=== PATIENT | female | born 1940 | race Caucasian/White ===

== ENCOUNTER 2016-11-14 16:29 | Inpatient (IN) | payer MEDICARE ==
[~2016-11-14] VITALS: Ht 162.6 cm; Wt 64.1 kg
[2016-11-14] VITALS (12 sets, daily range): BP systolic 157–225; BP diastolic 69–137; PULSE 74–94; RESP 16–20; TEMP 97.4–97.9; O2SAT 95–98
[~2016-11-14 16:29] MED LIST: CALC600T12 PO; FOSA70TA PO; HYDRO2.5%T TOP; INSU100V3 SQ; LISI-357 PO; METO25 PO; ROSU20 PO; ST JTAB PO; ZOFR4TAB3 SL
[2016-11-14] MEDS ORDERED: DEXTROSE 50% IN WATER 50 ML VIAL(D50) ONE ×2 (16:47→18:07)
--- NOTE | 2016-11-14 17:12 | PD ---
HPI Chief Complaint: Diabetic Time Seen by Provider: 16:48 Travel History International Travel<30 days: No Contact w/Intl Traveler<30days: No Traveled to known affect area: No History of Present Illness HPI The patient is a 76-year-old female who presents emergency department for mucus in the posterior aspect of her throat and possible sinusitis. The patient states she had similar symptoms 1 month ago with postnasal drip, phlegm in the posterior aspect of her throat, and facial pain. The patient was seen by her primary physician, Dr. Dr. Drew, who prescribed antibiotics. The patient states her symptoms resolved, however, they are now returning. The patient also has a history of diabetes and takes insulin 21 units in the morning and 6 units at night. The patient took her insulin this morning and subsequently ate biscuits and gravy. However, at lunch she was eating roast beef when she subsequently had an episode of vomiting secondary to mucus in the posterior aspect of her throat was unable to tolerate lunch. Upon arrival the patient was noted be diaphoretic with a blood glucose of 36. 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 She complains of left-sided facial pain with tenderness over the left frontal sinus and left maxillary sinus with postnasal drainage. She also complains of a nose, worse when she eats. She denies any fever or posterior headache. She denies any cough, shortness of breath, or chest pain. PFSH Past Medical History Diabetes: Yes Patient Takes Glucophage: No Diminished Hearing: Yes (DIMINISHED HEARING RIGHT EAR) Immunizations Current: Yes ?: Not Menopausal: No Past Surgical History Eye Surgery: Yes (BOTH FOR CATARACT REMOVAL AND GLAUCOMA) Hysterectomy: Yes Social History Alcohol Use: No Tobacco Use: No Substance Use: No Allergies-Medications (Allergen,Severity, Reaction): Coded Allergies: Morphine (Verified Allergy, Intermediate, VOMITING, 05/07/14) Reported Meds & Prescriptions Reported Meds & Active Scripts Active Reported Calcium (Calcium Carbonate) 600 Mg Tab 1,200 Mg PO DAILY Fosamax (Alendronate Sodium) 70 Mg Tab 70 Mg PO Q7D TAKE 30 MINUTES BEFORE THE MORNING MEAL, ONLY WATER Aspirin Ec Low Strength (Aspirin) 81 Mg Tab 81 Mg PO DAILY Lisinopril 5 mg (Lisinopril) 5 Mg Tab 1 Tab PO DAILY Crestor (Rosuvastatin Calcium) 20 Mg Tab 20 Mg PO DAILY Metoprolol Tartrate 25 mg (Metoprolol Tartrate) 25 Mg Tab 12.5 Tab PO DAILY Humulin N (Insulin Human NPH) Inj 6 Units SQ HS Humulin N (Insulin Human NPH) Inj 21 Units SQ DAILY Review of Systems Except as stated in HPI: all other systems reviewed are Neg General / Constitutional: No: Fever HENT: Positive: Sore Throat, Rhinitis, Other (as noted in the history of present illness) Cardiovascular: No: Chest Pain or Discomfort Respiratory: No: Cough, Shortness of Breath Gastrointestinal: Positive: Vomiting (one episode of vomiting secondary to mucus in the throat) Musculoskeletal: No: Weakness Neurologic: No: Dizziness Physical Exam Narrative GENERAL: Awake, alert, pleasant 76-year-old female who appears her stated age and is in no acute respiratory distress. SKIN: Focused skin assessment warm/dry. HEAD: Atraumatic. Normocephalic. EYES: Pupils equal and round. No scleral icterus. No injection or drainage. ENT: No nasal bleeding or discharge. Cobblestoning of posterior pharynx, no exudate. Tenderness over the left frontal sinus and left maxillary sinus. NECK: Trachea midline. No JVD. CARDIOVASCULAR: Regular rate and rhythm. No murmur appreciated. RESPIRATORY: No accessory muscle use. Clear to auscultation. Breath sounds equal bilaterally. GASTROINTESTINAL: Abdomen soft, non-tender, nondistended. MUSCULOSKELETAL: No obvious deformities. No clubbing. No cyanosis. No edema. NEUROLOGICAL: Awake and alert. No obvious cranial nerve deficits. Motor grossly within normal limits. Normal speech. PSYCHIATRIC: Appropriate mood and affect; insight and judgment normal. Data Data Last Documented VS Vital Signs Date Time Temp Pulse Resp B/P Pulse Ox O2 Delivery O2 Flow Rate FiO2 11/14/16 18:35 84 20 189/99 97 11/14/16 17:04 Room Air 11/14/16 16:43 97.6 Orders Dextrose 50% In Rod (Vial) Inj (D50w (Vi (11/14/16 16:47) Complete Blood Count With Diff (11/14/16 17:02) Comprehensive Metabolic Panel (11/14/16 17:02) Chest, Single Ap (11/14/16 17:02) Blood Glucose (11/14/16 17:02) Blood Glucose (11/14/16 18:02) Ecg Monitoring (11/14/16 17:02) Iv Access Insert/Monitor (11/14/16 17:02) Oximetry (11/14/16 17:02) Sodium Chloride 0.9% Flush (Ns Flush) (11/14/16 17:15) Diet Regular Basic (11/14/16 Dinner) Dextrose 50% In Rod (Syr) Inj (D50w (Syr (11/14/16 17:15) Glucagon Inj (Glucagon Inj) (11/14/16 18:00) Ondansetron Inj (Zofran Inj) (11/14/16 18:00) Dextrose 50% In Rod (Vial) Inj (D50w (Vi (11/14/16 18:07) Dextrose 50% In Rod (Syr) Inj (D50w (Syr (11/14/16 18:15) Dext 5%-Nacl 0.45% 1000 Ml Inj (D5w-1/2 (11/14/16 18:15) Electrocardiogram (11/14/16 ) Admit Order (Ed Use Only) (11/14/16 18:30) Consult Gastroenterology (11/14/16 ) Labs Laboratory Tests Test 11/14/16 11/14/16 17:06 17:40 Sodium Level 141 MEQ/L Potassium Level 3.5 MEQ/L Chloride Level 107 MEQ/L Carbon Dioxide Level 25.2 MEQ/L Anion Gap 9 MEQ/L Blood Urea Nitrogen 30 MG/DL Creatinine 1.50 MG/DL Estimat Glomerular Filtration 34 ML/MIN Rate Random Glucose 34 MG/DL Calcium Level 9.2 MG/DL Total Bilirubin 0.4 MG/DL Aspartate Amino Transf 28 U/L (AST/SGOT) Alanine Aminotransferase 20 U/L (ALT/SGPT) Alkaline Phosphatase 67 U/L Total Protein 7.9 GM/DL Albumin 3.6 GM/DL White Blood Count 7.6 TH/MM3 Red Blood Count 4.17 MIL/MM3 Hemoglobin 12.2 GM/DL Hematocrit 37.2 % Mean Corpuscular Volume 89.3 FL Mean Corpuscular Hemoglobin 29.3 PG Mean Corpuscular Hemoglobin 32.8 % Concent Red Cell Distribution Width 13.1 % Platelet Count 162 TH/MM3 Mean Platelet Volume 9.1 FL Neutrophils (%) (Auto) 71.8 % Lymphocytes (%) (Auto) 13.5 % Monocytes (%) (Auto) 8.1 % Eosinophils (%) (Auto) 3.8 % Basophils (%) (Auto) 2.8 % Neutrophils # (Auto) 5.5 TH/MM3 Lymphocytes # (Auto) 1.0 TH/MM3 Monocytes # (Auto) 0.6 TH/MM3 Eosinophils # (Auto) 0.3 TH/MM3 Basophils # (Auto) 0.2 TH/MM3 CBC Comment DIFF FINAL Differential Comment MDM Medical Decision Making Medical Screen Exam Complete: Yes Emergency Medical Condition: Yes Medical Record Reviewed: Yes Interpretation(s) Last Impressions Chest X-Ray 11/14/161701 Signed Impressions: Service Date/Time: Saturday, November 14, 2016 17:12 - CONCLUSION: 1. COPD with mild bibasilar interstitial prominence. 2. No evidence of consolidating infiltrate. 3. Status post CABG without evidence of acute pulmonary congestion. Scott Gagnon MD Last Impressions Chest X-Ray 11/14/161701 Signed Impressions: Service Date/Time: Monday, November 14, 2016 17:12 - CONCLUSION: 1. COPD with mild bibasilar interstitial prominence. 2. No evidence of consolidating infiltrate. 3. Status post CABG without evidence of acute pulmonary congestion. Scott Gagnon MD EKG reveals normal sinus rhythm with a rate 89. Nonspecific T wave changes. Wavy baseline. Differential Diagnosis Differential diagnoses includes sinusitis, URI, pharyngitis, achalasia, esophageal spasm, bronchitis, pneumonia, Schatzki ring, esophageal fistula, esophageal food bolus Narrative Course IV was established, labs were drawn and sent, and the patient was placed on cardiac telemetry monitoring and continuous pulse oximetry monitoring. The patient's blood glucose was noted to be 36 with diaphoresis, therefore, she was administered one amp of D50. The patient's symptoms did resolve, she was monitored in the emergency department with every hour Accu-Cheks. The patient was ordered a diet. The patient does have tenderness over the left frontal and left maxilla sinus with cobblestoning in posterior oropharynx which is consistent with sinusitis. The patient was ordered a diet, however, every time she ate solid food and will go down and she was subsequently vomited minimally digested food. She denied any anterior chest pain, just feels like there is "mucus in the throat ". She denies any history of esophageal motility disorders or previous EGD. However, patient was witnessed swallowing greater than soft bruits, it would go down, and 2 minutes later she would throw up non- digested food. It appears the patient has an esophageal stricture versus esophageal foreign body. Chest x-ray was unremarkable. Therefore, the patient was then kept nothing by mouth and the on-call anchor operator was called. I discussed the patient with Dr. Adams who requests glucagon 1 mg IV and oral challenge. 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 At 6:10 PM the patient's blood sugar was once again checked, was down to 61. The patient was administered another amp of D50 and placed on D5 1 half normal saline at 84 mL's per hour. The patient then had some more vomiting which would appear to be mostly partial to undigested solid food with chunks. I am unsure if this is from the esophagus and/or stomach, it appears the patient has some type of partial esophageal stricture or closure. After glucagon the patient was able to tolerate water, however, we did not try solids as she was nauseous and had another episode of vomiting. The on-call anchor operator was paged once again in the [facility] were paged for admission. Physician Communication Physician Communication [facility] were paged for admission. I discussed the patient with Dr. Peralta who agrees with admission. Diagnosis Primary Impression: Hypoglycemia Additional Impression: Nausea & vomiting Qualified Code: R11.2 - Nausea and vomiting, intractability of vomiting not specified, unspecified vomiting type Admitting Information Admitting Physician Requests: Admit Condition: Stable Moshe Moreno MD Nov 14, 2016 17:12
[2016-11-14] MEDS ORDERED: DEXTROSE 50% IN WATER 50 ML SYRINGE IV ONE ×2 (17:15→18:15)
[2016-11-14] MEDS ORDERED: SODIUM CHLORIDE 0.9% FLUSH 10 ML FLUSH IVF PRN (17:15)
--- NOTE | 2016-11-14 17:27 | RADRPT ---
EXAM DATE/TIME: 11/14/2016 17:12 [facility] COMPARISON: No previous studies available for comparison. INDICATIONS : Cough. MEDICAL HISTORY : None. SURGICAL HISTORY : CABG. ENCOUNTER: Initial ACUITY: 1 day PAIN SCORE: 0/10 LOCATION: Bilateral chest FINDINGS: Lungs are hyperinflated. There is mild interstitial prominence in the bases. There is no evidence of lung consolidation. Heart is normal size. Post surgical changes from prior open heart surgery are noted. CONCLUSION: 1. COPD with mild bibasilar interstitial prominence. 2. No evidence of consolidating infiltrate. 3. Status post CABG without evidence of acute pulmonary congestion. Scott Gagnon MD on November 14, 2016 at 17:24 Board Certified Radiologist. This report was verified electronically.
[2016-11-14 17:29] LABS: CHLORIDE 107 MEQ/L (98-107); POTASSIUM 3.5 MEQ/L (3.5-5.1); SODIUM (NA) 141 MEQ/L (136-145)
[2016-11-14 17:33] LABS: ANION GAP 9 MEQ/L (5-15); BICARBONATE 25.2 MEQ/L (21.0-32.0)
[2016-11-14 17:49] LABS: AUTOMATED NEUTROPHIL # 5.5 TH/MM3 (1.8-7.7); BASOPHIL # 0.2 TH/MM3 (0-0.2); BASOPHIL % 2.8 % (0.0-2.0); EOSINOPHIL # 0.3 TH/MM3 (0-0.4); EOSINOPHIL % 3.8 % (0.0-4.0); HEMATOCRIT 37.2 % (35.0-46.0); HEMO FLAGS DIFF FINAL; LYMPH % 13.5 % (9.0-44.0); MEAN CELL VOLUME 89.3 FL (80.0-100.0); MEAN CORPUSCULAR HEMOGLOBIN 29.3 PG (27.0-34.0); MEAN CORPUSCULAR HGB CONC 32.8 % (32.0-36.0); MONO % 8.1 % (0.0-8.0); NEUT % 71.8 % (16.0-70.0); PLATELET COUNT 162 TH/MM3 (150-450); RED BLOOD COUNT 4.17 MIL/MM3 (4.00-5.30); RED CELL DISTRIBUTION WIDTH 13.1 % (11.6-17.2); WHITE BLOOD COUNT 7.6 TH/MM3 (4.0-11.0)
[2016-11-14 17:57] LABS: ALKALINE PHOSPHATASE 67 U/L (45-117); ALT (GPT) 20 U/L (10-53); AST (GOT) 28 U/L (15-37); BLOOD UREA NITROGEN 30 MG/DL (7-18); GLOMERULAR FILTRATION RATE 34 ML/MIN (>89); TOTAL BILIRUBIN ADULT 0.4 MG/DL (0.2-1.0)
[2016-11-14] MEDS ORDERED: GLUCAGON 1 MG/ML VIAL IV PUSH ONE (18:00)
[2016-11-14] MEDS ORDERED: ONDANSETRON HCL 4 MG/2 ML VIAL IV PUSH ONE (18:00)
[2016-11-14] MEDS ORDERED: DEXT 5%-NACL 0.45% 1000 ML INJ 1,000 ML IV SCH ×2 (18:15→19:30)
[2016-11-14] MEDS ORDERED: NALOXONE HCL 0.4 MG/ML AMP IV PRN (19:30)
[2016-11-14] MEDS ORDERED: PROCHLORPERAZINE 25 MG SUPP RECTAL PRN (19:30)
[2016-11-14] MEDS ORDERED: hydrALAZINE HCL 20 MG/ML VIAL IV PRN (19:30)
[2016-11-14] MEDS ORDERED: ENALAPRILAT 1.25 MG/ML VIAL IV PRN (19:30)
[2016-11-14] MEDS ORDERED: ONDANSETRON HCL 4 MG/2 ML VIAL IVP PRN (19:30)
--- NOTE | 2016-11-14 20:02 | MH ---
cc: ISRAEL PERALTA DATE OF ADMISSION 11/14/2016 DATE OF [address] Israel Peralta. PRIMARY CARE PHYSICIAN Dr. Drew REASON FOR ADMISSION Vomiting and passing out because of hypoglycemia. HISTORY OF THE PRESENT ILLNESS The patient is a very pleasant 76-year-old female with significant past medical history of hypertension and diabetes who came to the ER after passing out episode secondary to hypoglycemia. As per patient about a month ago she had similar symptoms of having vomiting after eating after an half an hour to an hour eating and she was diagnosed at that time with a sinusitis and antibiotic was given by her primary care doctor. The symptoms resolved and she was doing very well. Until this morning she ate and after that she had some vomiting. This morning she could not tolerate food but she ate a sandwich. The sandwich came up not after a long period and she was having some ____ sweats as well and she passed out. Her wants to give but she could not and he called 911. She was brought by the [facility]. As per the patient her sugar was very low and she was given dextrose. She usually takes insulin 21 units in the morning and 6 units at night. In the emergency room her sugar was low and she was given dextrose 2 ampules. She was started on dextrose half saline. Her sugar is now 200 plus. She still feels some queasiness in her stomach. But she has no vomiting at present. She has no headache or dizziness. There is no runny nose, stuffy nose. There is no cough. She had some cough yesterday. She had some left-sided facial ache and she thinks she has left sinus infection. She has postnasal drainage. She feels like she is going to bring up all of her food from this afternoon. She can tolerate clears very well. With clears there is no problem as per patient. The ER physician discussed with Dr. Kelly, dockworker, who wants her to be in the main hospital. Because he most likely will do a barium swallow or if needed endoscopy. PAST MEDICAL HISTORY 1. Diabetes. 2. Hypertension. 3. History of CAD status post CABG. 4. History of glaucoma. MEDICATIONS Reviewed please EMR. ALLERGIES THE PATIENT HAS ALLERGY TO MORPHINE. REVIEW OF SYSTEMS As described above in the history of present illness, negative for 10 systems. SOCIAL HISTORY The patient does not smoke, drink or do any drugs. She lives with her . FAMILY HISTORY Noncontributory. PHYSICAL EXAMINATION GENERAL: The patient is alert, oriented x3, well-built, well-nourished, lying on bed without any apparent distress. VITAL SIGNS: The patient is afebrile. Pulse is 84, respiratory rate 20, blood pressure 189/99, pulse ox of 97% on room air. HEENT: Head is atraumatic, normocephalic. Eyes, negative conjunctival icterus. Mouth unremarkable. There is no sinus tenderness on the right. There is a questionable sinus tenderness on the left side. Throat within normal limits. Central uvula. There is no swelling noted in the throat or back of the throat. NECK: Supple. No increased JVD. Trachea midline. CHEST: Clear to auscultation. No wheezing. No stridor noted. CARDIOVASCULAR: S1-S2 audible. . ABDOMEN: Soft. Nontender. No organomegaly. Positive bowel sounds. MUSCULOSKELETAL: Extremities no cyanosis or pedal edema appreciated. CENTRAL NERVOUS SYSTEM: Alert and oriented. Normal facial features. Moving all her extremities. LABORATORY DATA Investigations WBC, hemoglobin, hematocrit, platelet count within normal limits. BUN 30, creatinine 1.50. GFR 34. Random glucose was 34. LFTs within normal limits. PT, INR, APTT within normal limits. IMAGING Chest x-ray was done which shows COPD with mild bibasilar interstitial prominence. No evidence of consolidation or consolidating infiltrate. Status post CABG without evidence of acute pulmonary congestion. ASSESSMENT 1. Passing out felt secondary to the severe hypoglycemia. 2. Severe hyperglycemia secondary to nausea and vomiting. Intra-abdominal to tolerate food but took her medications this morning. 3. Diabetes. 4. Hypertension, uncontrolled. 5. History of CAD status post CABG. 6. Vomiting, unable to swallow solids. Regurgitating / vomiting with solid food. PLAN Admit to the floor. Gastroenterology consultation. IV dextrose with half normal saline to maintain normal sugar. The patient is status post D50 ampules IV. We will keep her on a PPI. Also monitor blood pressure on a p.r.n. basis. Blood pressure medication on p.r.n. basis. Antihypertensives. The patient has stage of history of CKD, we will monitor. SCDs for DVT prophylaxis. Accu-Cheks. Condition discussed with the patient in detail. Discussed with RN. Further recommendation to follow as per patient progresses. Condition is guarded. My partner will follow this patient from tomorrow. Jawed MD TERRI Peralta/PHILIPPE /7:12 PM /7:25 PM
[2016-11-14] MEDS: PANTOPRAZOLE SODIUM 40 MG VIAL IV PUSH SCH (20:13)
[2016-11-14] MEDS ORDERED: CARV3.12 PO (22:23)
[2016-11-14] MEDS ORDERED: LISI-519 PO (22:25)
[2016-11-14] MEDS ORDERED: ASPI81CH CHEW (22:25)
[2016-11-14] MEDS ORDERED: ROSU1TAB8 PO (22:25)
[2016-11-14] MEDS ORDERED: CALC0.25 PO (22:26)
[2016-11-14] MEDS ORDERED: INSU100V3 SQ ×2 (22:27→22:28)
[2016-11-15] VITALS (12 sets, daily range): BP systolic 76–198; BP diastolic 39–101; PULSE 76–93; RESP 11–29; TEMP 97–98; O2SAT 95–97
[2016-11-15 06:24] LABS: CHLORIDE 104 MEQ/L (98-107); POTASSIUM 4.2 MEQ/L (3.5-5.1); SODIUM (NA) 138 MEQ/L (136-145)
[2016-11-15 06:27] LABS: ANION GAP 8 MEQ/L (5-15); BICARBONATE 25.9 MEQ/L (21.0-32.0)
[2016-11-15 06:34] LABS: ALKALINE PHOSPHATASE 61 U/L (45-117); ALT (GPT) 16 U/L (10-53); AST (GOT) 24 U/L (15-37); BLOOD UREA NITROGEN 24 MG/DL (7-18); GLOMERULAR FILTRATION RATE 37 ML/MIN (>89); TOTAL BILIRUBIN ADULT 0.5 MG/DL (0.2-1.0)
[2016-11-15] MEDS ORDERED: PROPOFOL 200 MG/20 ML AMP IV ONE (08:32)
--- NOTE | 2016-11-15 08:33 | HHI.PR ---
Vitals/Results Intake & Output 11/14/16 11/14/16 11/15/16 15:00 23:00 07:00 Intake Total 600 ml Output Total 725 ml Balance -125 ml Intake Oral 0 ml IV Total 600 ml Output Urine Total 725 ml # Voids 2 # Bowel Movements 0 Vital Signs Vital Signs Date Time Temp Pulse Resp B/P Pulse Ox O2 Delivery O2 Flow Rate FiO2 11/15/16 08:00 97.0 82 16 154/62 96 11/15/16 08:00 97.0 82 18 154/62 11/15/16 04:00 97.2 80 20 145/65 96 11/15/16 00:40 185/78 11/15/16 00:15 93 11/14/16 22:45 97.4 94 20 206/92 98 11/14/16 21:31 97.9 89 16 157/73 96 Room Air 11/14/16 21:00 88 18 170/82 98 Room Air 11/14/16 19:30 80 18 166/70 95 Room Air 11/14/16 19:05 98 Room Air 11/14/16 19:05 97.8 86 20 204/83 98 Room Air 11/14/16 18:35 84 20 189/99 97 11/14/16 18:28 89 18 207/75 96 11/14/16 18:10 82 18 206/137 96 11/14/16 17:52 74 20 202/79 11/14/16 17:11 74 18 180/69 96 11/14/16 17:04 98 Room Air 11/14/16 16:54 98 Room Air 11/14/16 16:43 97.6 80 20 225/115 98 CBC/BMP: 11/14/16 1740 11/15/16 0545 Lab Results Laboratory Tests Test 11/14/16 11/14/16 11/15/16 17:06 17:40 05:45 Sodium Level 141 MEQ/L 138 MEQ/L Potassium Level 3.5 MEQ/L 4.2 MEQ/L Chloride Level 107 MEQ/L 104 MEQ/L Carbon Dioxide Level 25.2 MEQ/L 25.9 MEQ/L Anion Gap 9 MEQ/L 8 MEQ/L Blood Urea Nitrogen 30 MG/DL 24 MG/DL Creatinine 1.50 MG/DL 1.40 MG/DL Estimat Glomerular Filtration 34 ML/MIN 37 ML/MIN Rate Random Glucose 34 MG/DL 216 MG/DL Calcium Level 9.2 MG/DL 8.4 MG/DL Total Bilirubin 0.4 MG/DL 0.5 MG/DL Aspartate Amino Transf 28 U/L 24 U/L (AST/SGOT) Alanine Aminotransferase 20 U/L 16 U/L (ALT/SGPT) Alkaline Phosphatase 67 U/L 61 U/L Total Protein 7.9 GM/DL 6.8 GM/DL Albumin 3.6 GM/DL 3.1 GM/DL White Blood Count 7.6 TH/MM3 Red Blood Count 4.17 MIL/MM3 Hemoglobin 12.2 GM/DL Hematocrit 37.2 % Mean Corpuscular Volume 89.3 FL Mean Corpuscular Hemoglobin 29.3 PG Mean Corpuscular Hemoglobin 32.8 % Concent Red Cell Distribution Width 13.1 % Platelet Count 162 TH/MM3 Mean Platelet Volume 9.1 FL Neutrophils (%) (Auto) 71.8 % Lymphocytes (%) (Auto) 13.5 % Monocytes (%) (Auto) 8.1 % Eosinophils (%) (Auto) 3.8 % Basophils (%) (Auto) 2.8 % Neutrophils # (Auto) 5.5 TH/MM3 Lymphocytes # (Auto) 1.0 TH/MM3 Monocytes # (Auto) 0.6 TH/MM3 Eosinophils # (Auto) 0.3 TH/MM3 Basophils # (Auto) 0.2 TH/MM3 CBC Comment DIFF FINAL Differential Comment Assessment/Plan Assessment/Plan ASSESSMENT 1. Passing out felt secondary to the severe hypoglycemia. 2. Severe hyperglycemia secondary to nausea and vomiting. Intra-abdominal to tolerate food but took her medications this morning. 3. Diabetes. 4. Hypertension, uncontrolled. 5. History of CAD status post CABG. 6. Vomiting, unable to swallow solids. Regurgitating / vomiting with solid food. PLAN Admit to the floor. Gastroenterology consultation. IV dextrose with half normal saline to maintain normal sugar. The patient is status post D50 ampules IV. We will keep her on a PPI. Also monitor blood pressure on a p.r.n. basis. Blood pressure medication on p.r.n. basis. Antihypertensives. The patient has stage of history of CKD, we will monitor. SCDs for DVT prophylaxis. Accu-Cheks. Condition discussed with the patient in detail. Discussed with RN. Further recommendation to follow as per patient progresses. Condition is guarded. My partner will follow this patient from tomorrow. Hank Jerez MD Nov 15, 2016 08:33
[2016-11-15 08:35] LABS: AUTOMATED NEUTROPHIL # 7.3 TH/MM3 (1.8-7.7); BASOPHIL # 0.1 TH/MM3 (0-0.2); BASOPHIL % 0.7 % (0.0-2.0); EOSINOPHIL # 0.2 TH/MM3 (0-0.4); EOSINOPHIL % 2.1 % (0.0-4.0); LYMPH % 16.4 % (9.0-44.0); LYMPHOCYTE # 1.7 TH/MM3 (1.0-4.8); MEAN CELL VOLUME 87.8 FL (80.0-100.0); MEAN CORPUSCULAR HEMOGLOBIN 28.7 PG (27.0-34.0); MEAN CORPUSCULAR HGB CONC 32.7 % (32.0-36.0); MONO % 9.2 % (0.0-8.0); NEUT % 71.6 % (16.0-70.0); RED BLOOD COUNT 3.98 MIL/MM3 (4.00-5.30); RED CELL DISTRIBUTION WIDTH 12.3 % (11.6-17.2); WHITE BLOOD COUNT 10.2 TH/MM3 (4.0-11.0)
[2016-11-15 08:38] LABS: HEMO FLAGS AUTO DIFF
[2016-11-15 08:39] LABS: PLATELET COUNT 227 TH/MM3 (150-450)
--- NOTE | 2016-11-15 08:40 | GIPROC ---
[facility] [address] [place] [address], [id number] EGD PROCEDURE REPORT EXAM DATE: 11/15/2016 PATIENT NAME: Yoana Pina MR #: [id number] BIRTHDATE: 1940 ATTENDING: Cheryl Garcia MD ORDER #: [id number] FIRE EQUIPMENT INSPECTOR HELPER: Abraham Dominguez and Philly Ordoñez STATUS: inpatient INDICATIONS: The patient is a 76 yr old female here for an EGD due to dysphagia and unable to swallow her secretions PROCEDURE PERFORMED: EGD w/ biopsy EGD w/ dilation of esophagus via guidewire MEDICATIONS: None and Per Anesthesia. TOPICAL ANESTHETIC: none CONSENT: The patient understands the risks and benefits of the procedure and understands that these risks include, but are not limited to: sedation, allergic reaction, infection, perforation and/or bleeding. Alternative means of evaluation and treatment include, among others: physical exam, x-rays, and/or surgical intervention. The patient elects to proceed with this endoscopic procedure. medical equipment was checked for proper function. Hand hygiene and appropriate measures for infection prevention was taken. After the risks, benefits and alternatives of the procedure were thoroughly explained, Informed consent was verified, confirmed and timeout was successfully executed by the treatment team. The patient was anesthetized with topical anesthesia and the EC-[id number] (Pedi C) endoscope was introduced through the mouth and advanced to the second portion of the duodenum. Retroflexed views revealed no abnormalities The gastroscope was then slowly withdrawn and removed. Irregular Z line Bx from EG junction. The endoscopy was otherwise normal. Imperic dilation of of the esophagus size 17 mm. ADVERSE EVENTS: There were no complications. IMPRESSIONS: 1. Irregular Z line Bx from EG junction 2. Normal endoscopy otherwise 3. Imperic dilation of of the esophagus size 17 mm 4. Retroflexed views revealed no abnormalities RECOMMENDATIONS: 1. Await biopsy results. Biopsy results will not be ready for 7-10 days. If you don't hear from us in two weeks, call our office for biopsy results. 2. Avoid NSAIDS 3. May feed patient PATIENT CONDITION: stable DISPOSITION: Inpatient REPEAT EXAM: Return as needed for EGD Cheryl Garcia MD eSigned: Cheryl Garcia MD 11/15/2016 8:40 AM cc:
[2016-11-15 09:27] LABS: SCAN/DIFF AUTO DIFF CONFIRMED
--- NOTE | 2016-11-15 11:32 | EKG ---
Date Performed: 11/14/2016 Time Performed: 18:13:46 PTAGE: 76 years EKG: Normal Sinus rhythm based on artifact Poor R-wave progression, cannot exclude old anteroseptal myocardial infarction Non specifc ST changes No obvious change from the prior tracing. PREVIOUS TRACING 05/07/14 DOCTOR: Jose E Alcantar Interpretating Date/Time 11/15/2016 11:30:39
--- NOTE | 2016-11-15 14:05 | MB ---
cc: ISAIAS NEWBERRY M.D. DATE OF CONSULTATION 11/15/2016 DATE OF [address] Kelley REASON FOR REFERRAL Possible dysphagia HISTORY OF PRESENT ILLNESS This is a pleasant 76-year-old lady who has significant history of diabetes and hypertension who came to the emergency room because of episodes of hypoglycemia. The patient was seen here. She had some vomiting after eating and she also has questionable postnasal drip and sinusitis. She stated that she had that about a month ago and her similar symptoms is that she did feel able to swallow her saliva for awhile and she is worried that there is something caught in her esophagus. She denied any other problem. She occasionally does not tolerate food well where she feels that it does not go down easily. ALLERGIES MORPHINE MEDICATIONS Reviewed in the chart. REVIEW OF SYSTEMS All 12-point negative except HPI. SOCIAL HISTORY No tobacco, drug or alcohol. PAST MEDICAL HISTORY Significant for: 1. Hypertension 2. Glaucoma 3. Coronary artery disease with CABG. 4. Diabetes FAMILY HISTORY Noncontributory PHYSICAL EXAMINATION Alert, oriented in no acute distress. A little bit nervous. VITAL SIGNS: Stable. HEENT: Pupils are round and reactive to light. NECK: Supple. CHEST: Clear to auscultation and percussion. CARDIAC: Regular rate and rhythm. No murmur or gallop. ABDOMEN: Soft and nondistended. Positive bowel sounds. No hepatosplenomegaly. EXTREMITIES: No edema, clubbing or cyanosis. NEUROLOGIC: Neurologically intact, alert and oriented. PSYCHOLOGIC: Psychologically appropriate. LABORATORY DATA White count 10.2, hemoglobin 11.4, platelet 227, BUN 24, creatinine 1.40, GFR 77. Liver function tests normal. CHEST X-RAY Mild basilar interstitial prominence, otherwise negative. ASSESSMENT/PLAN The patient is a 76-year-old lady with diabetes and questionable dysphagia. I recommend doing upper endoscopy to rule out esophageal stricture or malignancy. The patient otherwise seems to be doing okay. It also could be a component of gastroparesis. If the endoscopy is negative and her symptoms persist, a gastric emptying study may be indicated, but this can be done as an outpatient. The patient understood the plan and will proceed with upper endoscopy today since she is n.p.o. MD SORAYA Rivera /11:35 AM /1:14 PM
[2016-11-15] MEDS ORDERED: INSULIN ASPART 1,000 UNITS/10 ML VIAL SQ ONE (17:30)
[2016-11-15] MEDS ORDERED: GLUCAGON 1 MG/ML VIAL OTHER PRN (17:30)
[2016-11-15] MEDS ORDERED: DEXTROSE 50% IN WATER 50 ML VIAL(D50) IV PUSH PRN ×2 (17:30→19:45)
[2016-11-15] MEDS ORDERED: INSULIN REGULAR 100 UNITS/100 ML NS ALGORITHM 1 IV PRN ×2 (19:45)
[2016-11-15] MEDS ORDERED: MISC INFORMATION OTHER ONE (19:45)
[2016-11-15] MEDS: PANTOPRAZOLE SODIUM 40 MG VIAL IV PUSH SCH (19:52)
[2016-11-15] MEDS ORDERED: MEDIUM DOSE INSULIN NOVOLOG SUPPLEMENTAL SCALE SQ SCH (21:00)
[2016-11-16] VITALS (14 sets, daily range): BP systolic 90–147; BP diastolic 40–83; PULSE 72–88; RESP 12–22; TEMP 97.7–98.6; O2SAT 96–98
[2016-11-16] MEDS ORDERED: CHLORHEXIDINE GLUCONATE 2 % 1 PACK (2 CLOTHS)(extra cloths) TOPICAL PRN (00:15)
--- NOTE | 2016-11-16 02:59 | HHI.PR ---
Subjective History of Present Illness Received call from RN, insulin drip on hold x 2 hours secondary to glucose in the 80s. Ordered d/c insulin drip accucheck ACHS with sliding scale Vitals/Results Intake & Output 11/15/16 11/15/16 11/16/16 15:00 23:00 07:00 Intake Total 50 ml 31 ml Output Total 900 ml Balance 50 ml -869 ml Intake Oral 30 ml IV Total 1 ml Other 50 ml Output Urine Total 900 ml # Voids 1 # Bowel Movements 0 Vital Signs Vital Signs Date Time Temp Pulse Resp B/P Pulse Ox O2 Delivery O2 Flow Rate FiO2 11/16/16 02:01 76 14 108/53 98 11/16/16 01:01 80 18 90/44 98 11/16/16 01:00 72 11/16/16 00:01 97.7 82 15 91/40 98 11/15/16 23:42 82 21 103/47 96 11/15/16 23:03 76 17 88/43 95 11/15/16 23:01 76 11 76/39 95 11/15/16 22:01 88 21 163/73 97 11/15/16 21:01 86 29 139/80 97 11/15/16 20:30 97.6 89 24 198/101 97 11/15/16 16:00 98.0 91 18 141/69 95 11/15/16 12:00 97.7 86 18 142/75 95 11/15/16 09:05 98.8 82 16 140/47 98 11/15/16 08:50 81 16 116/50 98 11/15/16 08:40 99.0 74 14 91/50 100 11/15/16 08:00 97.0 82 16 154/62 96 11/15/16 08:00 97.0 82 18 154/62 11/15/16 04:00 97.2 80 20 145/65 96 CBC/BMP: 11/15/16 0755 11/15/16 2345 Lab Results Laboratory Tests Test 11/15/16 11/15/16 11/15/16 05:45 07:55 17:35 Sodium Level 138 MEQ/L Potassium Level 4.2 MEQ/L Chloride Level 104 MEQ/L Carbon Dioxide Level 25.9 MEQ/L Anion Gap 8 MEQ/L Blood Urea Nitrogen 24 MG/DL Creatinine 1.40 MG/DL Estimat Glomerular Filtration 37 ML/MIN Rate Random Glucose 216 MG/DL 765 MG/DL Calcium Level 8.4 MG/DL Total Bilirubin 0.5 MG/DL Aspartate Amino Transf 24 U/L (AST/SGOT) Alanine Aminotransferase 16 U/L (ALT/SGPT) Alkaline Phosphatase 61 U/L Total Protein 6.8 GM/DL Albumin 3.1 GM/DL White Blood Count 10.2 TH/MM3 Red Blood Count 3.98 MIL/MM3 Hemoglobin 11.4 GM/DL Hematocrit 35.0 % Mean Corpuscular Volume 87.8 FL Mean Corpuscular Hemoglobin 28.7 PG Mean Corpuscular Hemoglobin 32.7 % Concent Red Cell Distribution Width 12.3 % Platelet Count 227 TH/MM3 Mean Platelet Volume 8.3 FL Neutrophils (%) (Auto) 71.6 % Lymphocytes (%) (Auto) 16.4 % Monocytes (%) (Auto) 9.2 % Eosinophils (%) (Auto) 2.1 % Basophils (%) (Auto) 0.7 % Neutrophils # (Auto) 7.3 TH/MM3 Lymphocytes # (Auto) 1.7 TH/MM3 Monocytes # (Auto) 0.9 TH/MM3 Eosinophils # (Auto) 0.2 TH/MM3 Basophils # (Auto) 0.1 TH/MM3 CBC Comment AUTO DIFF Differential Comment AUTO DIFF CONFIRMED Assessment/Plan Assessment/Plan ASSESSMENT 1. Passing out felt secondary to the severe hypoglycemia. 2. Severe hyperglycemia secondary to nausea and vomiting. Intra-abdominal to tolerate food but took her medications this morning. 3. Diabetes. 4. Hypertension, uncontrolled. 5. History of CAD status post CABG. 6. Vomiting, unable to swallow solids. Regurgitating / vomiting with solid food. PLAN Admit to the floor. Gastroenterology consultation. IV dextrose with half normal saline to maintain normal sugar. The patient is status post D50 ampules IV. We will keep her on a PPI. Also monitor blood pressure on a p.r.n. basis. Blood pressure medication on p.r.n. basis. Antihypertensives. The patient has stage of history of CKD, we will monitor. SCDs for DVT prophylaxis. Accu-Cheks. Condition discussed with the patient in detail. Discussed with RN. Further recommendation to follow as per patient progresses. Condition is guarded. My partner will follow this patient from tomorrow. Gee Becerril Nov 16, 2016 02:59
[2016-11-16] MEDS ORDERED: DEXTROSE 50% IN WATER 50 ML VIAL(D50) IV PRN (03:00)
[2016-11-16] MEDS ORDERED: GLUCAGON 1 MG/ML VIAL OTHER PRN (03:00)
[2016-11-16] MEDS ORDERED: CHLORHEXIDINE GLUCONATE 2 % 1 PACK (2 CLOTHS)(taper/protocol) TOPICAL SCH (04:00)
[2016-11-16 04:45] LABS: HEMATOCRIT 32.4 % (35.0-46.0); MEAN CELL VOLUME 87.3 FL (80.0-100.0); MEAN CORPUSCULAR HEMOGLOBIN 28.1 PG (27.0-34.0); MEAN CORPUSCULAR HGB CONC 32.2 % (32.0-36.0); RED BLOOD COUNT 3.71 MIL/MM3 (4.00-5.30); RED CELL DISTRIBUTION WIDTH 12.3 % (11.6-17.2)
[2016-11-16 04:50] LABS: WHITE BLOOD COUNT 5.8 TH/MM3 (4.0-11.0)
[2016-11-16 04:51] LABS: EOSINOPHIL # 0.3 TH/MM3 (0-0.4); LYMPHOCYTE # 1.2 TH/MM3 (1.0-4.8)
[2016-11-16 04:52] LABS: BASOPHIL % 0.9 % (0.0-2.0); EOSINOPHIL % 4.8 % (0.0-4.0); LYMPH % 23.1 % (9.0-44.0); NEUT % 55.1 % (16.0-70.0)
[2016-11-16 04:53] LABS: HEMO FLAGS DIFF FINAL
[2016-11-16 04:54] LABS: PLATELET COUNT 200 TH/MM3 (150-450)
[2016-11-16 05:04] LABS: CHLORIDE 103 MEQ/L (98-107); POTASSIUM 3.9 MEQ/L (3.5-5.1); SODIUM (NA) 137 MEQ/L (136-145)
[2016-11-16 05:08] LABS: ANION GAP 7 MEQ/L (5-15); BICARBONATE 26.9 MEQ/L (21.0-32.0)
[2016-11-16 05:15] LABS: ALKALINE PHOSPHATASE 59 U/L (45-117); ALT (GPT) 15 U/L (10-53); AST (GOT) 22 U/L (15-37); BLOOD UREA NITROGEN 25 MG/DL (7-18); GLOMERULAR FILTRATION RATE 37 ML/MIN (>89); TOTAL BILIRUBIN ADULT 0.4 MG/DL (0.2-1.0)
[2016-11-16] MEDS: INSULIN ASPART SUPPLEMENTAL SCALE SQ SCH ×2 (07:00→10:05)
--- NOTE | 2016-11-16 09:19 | HHI.GIFU ---
Subjective Remarks feels well today (had elevated glucose and transferred to ICU) no dysphagia tolerating food well. Objective Vitals I&O Vital Signs Date Time Temp Pulse Resp B/P Pulse Ox O2 Delivery O2 Flow Rate FiO2 11/16/16 06:01 80 15 104/57 96 11/16/16 05:01 76 17 111/59 11/16/16 05:00 77 11/16/16 04:01 98.6 74 12 98/41 97 11/16/16 03:01 74 16 97/48 11/16/16 03:00 79 11/16/16 02:01 76 14 108/53 98 11/16/16 01:01 80 18 90/44 98 11/16/16 01:00 72 11/16/16 00:01 97.7 82 15 91/40 98 11/15/16 23:42 82 21 103/47 96 11/15/16 23:03 76 17 88/43 95 11/15/16 23:01 76 11 76/39 95 11/15/16 22:01 88 21 163/73 97 11/15/16 21:01 86 29 139/80 97 11/15/16 20:30 97.6 89 24 198/101 97 11/15/16 16:00 98.0 91 18 141/69 95 11/15/16 12:00 97.7 86 18 142/75 95 I/O 11/15/16 11/15/16 11/15/16 11/16/16 11/16/16 11/16/16 06:59 14:59 22:59 06:59 14:59 22:59 Intake Total 600 ml 50 ml 31 ml 46 ml Output Total 725 ml 900 ml Balance -125 ml 50 ml -869 ml 46 ml Intake Oral 0 ml 30 ml 30 ml IV Total 600 ml 1 ml 16 ml Other 50 ml Output Urine Total 725 ml 900 ml # Voids 2 1 2 # Bowel Movements 0 0 0 Laboratory Laboratory Tests Test 11/15/16 11/16/16 17:35 04:15 Random Glucose 765 111 White Blood Count 5.8 Red Blood Count 3.71 Hemoglobin 10.4 Hematocrit 32.4 Mean Corpuscular Volume 87.3 Mean Corpuscular Hemoglobin 28.1 Mean Corpuscular Hemoglobin 32.2 Concent Red Cell Distribution Width 12.3 Platelet Count 200 Mean Platelet Volume 7.3 Neutrophils (%) (Auto) 55.1 Lymphocytes (%) (Auto) 23.1 Monocytes (%) (Auto) 16.0 Eosinophils (%) (Auto) 4.8 Basophils (%) (Auto) 0.9 Neutrophils # (Auto) 3.0 Lymphocytes # (Auto) 1.2 Monocytes # (Auto) 0.8 Eosinophils # (Auto) 0.3 Basophils # (Auto) 0.0 CBC Comment DIFF FINAL Differential Comment Sodium Level 137 Potassium Level 3.9 Chloride Level 103 Carbon Dioxide Level 26.9 Anion Gap 7 Blood Urea Nitrogen 25 Creatinine 1.40 Estimat Glomerular Filtration 37 Rate Calcium Level 8.6 Total Bilirubin 0.4 Aspartate Amino Transf 22 (AST/SGOT) Alanine Aminotransferase 15 (ALT/SGPT) Alkaline Phosphatase 59 Total Protein 6.4 Albumin 3.0 Physical Exam HEENT: Pupils round and reactive to light; normocephalic; atraumatic; no jaundice. Throat is clear. NECK: Neck is supple, no JVD, no lymphadenopathy. CHEST: Chest is clear to auscultation and percussion. CARDIAC: Regular rate and rhythm with no murmur gallop or rubs. ABDOMEN: Soft, nondistended, nontender; no hepatosplenomegaly; bowel sounds are present in all four quadrants. EXTREMITIES: No clubbing, cyanosis, or edema. SKIN: Normal; no rash; no jaundice. PRIMARY CARE PEDIATRICIAN: No focal deficits; alert and oriented times three. Assessment and Plan Plan doing well, no abdominal pain, tolerating diet, no dysphagia, we will sign off, FU as needed. Cheryl Garcia MD Nov 16, 2016 09:19
--- NOTE | 2016-11-16 10:20 | HHI.PR ---
Subjective History of Present Illness Patient feel better wants to go home today ok to discharge home today per GI. Review of Systems Constitutional Constitutional: Fatigue, Weakness Vitals/Results Intake & Output 11/15/16 11/15/16 11/16/16 15:00 23:00 07:00 Intake Total 50 ml 31 ml 46 ml Output Total 900 ml Balance 50 ml -869 ml 46 ml Intake Oral 30 ml 30 ml IV Total 1 ml 16 ml Other 50 ml Output Urine Total 900 ml # Voids 1 2 # Bowel Movements 0 0 Vital Signs Vital Signs Date Time Temp Pulse Resp B/P Pulse Ox O2 Delivery O2 Flow Rate FiO2 11/16/16 09:06 86 11/16/16 09:06 86 22 147/83 11/16/16 08:01 82 21 119/52 11/16/16 08:01 82 11/16/16 07:00 98.2 84 17 133/63 11/16/16 07:00 84 11/16/16 06:01 80 15 104/57 96 11/16/16 05:01 76 17 111/59 11/16/16 05:00 77 11/16/16 04:01 98.6 74 12 98/41 97 11/16/16 03:01 74 16 97/48 11/16/16 03:00 79 11/16/16 02:01 76 14 108/53 98 11/16/16 01:01 80 18 90/44 98 11/16/16 01:00 72 11/16/16 00:01 97.7 82 15 91/40 98 11/15/16 23:42 82 21 103/47 96 11/15/16 23:03 76 17 88/43 95 11/15/16 23:01 76 11 76/39 95 11/15/16 22:01 88 21 163/73 97 11/15/16 21:01 86 29 139/80 97 11/15/16 20:30 97.6 89 24 198/101 97 11/15/16 16:00 98.0 91 18 141/69 95 11/15/16 12:00 97.7 86 18 142/75 95 CBC/BMP: 11/16/16 0415 11/16/16 0415 Lab Results Laboratory Tests Test 11/15/16 11/16/16 17:35 04:15 Random Glucose 765 MG/DL 111 MG/DL White Blood Count 5.8 TH/MM3 Red Blood Count 3.71 MIL/MM3 Hemoglobin 10.4 GM/DL Hematocrit 32.4 % Mean Corpuscular Volume 87.3 FL Mean Corpuscular Hemoglobin 28.1 PG Mean Corpuscular Hemoglobin 32.2 % Concent Red Cell Distribution Width 12.3 % Platelet Count 200 TH/MM3 Mean Platelet Volume 7.3 FL Neutrophils (%) (Auto) 55.1 % Lymphocytes (%) (Auto) 23.1 % Monocytes (%) (Auto) 16.0 % Eosinophils (%) (Auto) 4.8 % Basophils (%) (Auto) 0.9 % Neutrophils # (Auto) 3.0 TH/MM3 Lymphocytes # (Auto) 1.2 TH/MM3 Monocytes # (Auto) 0.8 TH/MM3 Eosinophils # (Auto) 0.3 TH/MM3 Basophils # (Auto) 0.0 TH/MM3 CBC Comment DIFF FINAL Differential Comment Sodium Level 137 MEQ/L Potassium Level 3.9 MEQ/L Chloride Level 103 MEQ/L Carbon Dioxide Level 26.9 MEQ/L Anion Gap 7 MEQ/L Blood Urea Nitrogen 25 MG/DL Creatinine 1.40 MG/DL Estimat Glomerular Filtration 37 ML/MIN Rate Calcium Level 8.6 MG/DL Total Bilirubin 0.4 MG/DL Aspartate Amino Transf 22 U/L (AST/SGOT) Alanine Aminotransferase 15 U/L (ALT/SGPT) Alkaline Phosphatase 59 U/L Total Protein 6.4 GM/DL Albumin 3.0 GM/DL Physical Exam General General Appearance: Well Developed, Well Nourished, No Acute Distress, Comfortable Eyes Eye Exam: Sclera White, Extraocular Movement Intact Throat Throat Exam: Oral Mucosa Makena & Moist, Oral Pharynx Normal Neck Neck Exam: Neck Supple, Trachea Midline Pulmonary Resp Exam: Clear Bilaterally, Breath Sounds Equal, No Distress Cardiology CV Exam: Regular, Normal Sinus Rhythm Gastrointestinal/Abdomen GI Exam: Soft, Non-Tender, Bowel Sounds Present Musculoskeletal MS Exam: Normal Tone Integumentary Skin Exam: Clear, Warm, Dry Neurologic Neuro Exam: Alert, Awake, Oriented, Moving All Extremities, No Focal Deficits PUD Prophylasis PUD Prophylaxis: Protonix Assessment/Plan Assessment/Plan ASSESSMENT 1. Passing out felt secondary to the severe hypoglycemia. 2. Severe hyperglycemia secondary to nausea and vomiting. Intra-abdominal to tolerate food but took her medications this morning. 3. Diabetes. 4. Hypertension, uncontrolled. 5. History of CAD status post CABG. 6. Vomiting, unable to swallow solids. Regurgitating / vomiting with solid food. PLAN Gastroenterology input noted s/p upper endoscopy.. shows Irregular Z line Bx from EG junction Normal endoscopy otherwise Imperic dilation of of the esophagus size 17 mm, Retroflexed views revealed no abnormalities Await biopsy results. Biopsy results will not be ready for 7-10 days. Hypoglycemia ... The patient is status post D50 ampules IV. on a PPI. Also monitor blood pressure on a p.r.n. basis. Hypertension.. on Antihypertensives. The patient has stage 3 of CKD SCDs for DVT prophylaxis. Accu-Cheks. Condition discussed with the patient in detail. Discussed with RN. Further recommendation to follow as per patient progresses. ok to discharge patient home today condition at discharge good. Activity as tolerated. Diet cardiac and ADA 1800 Calories diet. Medicine see discharge medicine list. Discussed Condition with: Patient Hank Jerez MD Nov 16, 2016 10:20
== END 2016-11-16 12:45 | disposition home or self-care (01) | DRG 639 ==
LOC: PHED 16:29 → PHEDA 18:31 → PH3A 22:36 → PHICU 11-15 20:00
PROVIDERS: ADMIT Family Medicine; ATTEND Family Medicine
PROC: 0DB48ZX Excision of Esophagogastric Junction, Via Natural or Artificial Opening Endoscopic, Diagnostic (ICD-10-PCS; 2016-11-15)
PROC: 0D758ZZ Dilation of Esophagus, Via Natural or Artificial Opening Endoscopic (ICD-10-PCS; principal; 2016-11-15 08:28)
DX: E11.649 Type 2 diabetes mellitus with hypoglycemia without coma (principal); E11.65 Type 2 diabetes mellitus with hyperglycemia; Z79.4 Long term (current) use of insulin; R13.10 Dysphagia, unspecified; K22.8 Other specified diseases of esophagus; R11.2 Nausea with vomiting, unspecified; I12.9 Hypertensive chronic kidney disease with stage 1 through stage 4 chronic kidney disease, or unspecified chronic kidney disease; N18.9 Chronic kidney disease, unspecified; I25.10 Atherosclerotic heart disease of native coronary artery without angina pectoris; Z95.1 Presence of aortocoronary bypass graft; R09.82 Postnasal drip; H91.91 Unspecified hearing loss, right ear
CPT/HCPCS: 71010; 80053; 82947; 82948; 85025; 87640; 87641; 88305; 93005; 96374; 96375; C1769; C9113; J0360; J1610; J1815; J1817; J2405

== ENCOUNTER 2017-01-11 00:54 | Observation (INO) | payer MEDICARE ==
[~2017-01-11] VITALS: Ht 162.6 cm; Wt 65.2 kg
[2017-01-11] VITALS (10 sets, daily range): BP systolic 115–192; BP diastolic 57–83; PULSE 70–92; RESP 16–24; TEMP 97.7–98.7; O2SAT 93–99
[~2017-01-11 00:54] MED LIST changes: +ASPI81CH CHEW; +CALC0.25 PO; -CALC600T12 PO; +CARV3.12 PO; -FOSA70TA PO; -HYDRO2.5%T TOP; -LISI-357 PO; +LISI-519 PO; -METO25 PO; +ROSU1TAB8 PO; -ROSU20 PO; -ST JTAB PO; -ZOFR4TAB3 SL
[2017-01-11] MEDS ORDERED: IOHEXOL 350 MG/ML 10 ML VIAL (for RAD DIAG) IVCONTRAST ONE (00:55)
[2017-01-11] MEDS ORDERED: ONDANSETRON HCL 4 MG/2 ML VIAL ONE (01:22)
[2017-01-11] MEDS ORDERED: COUM1TAB PO (01:41)
[2017-01-11] MEDS ORDERED: HYDR-3516 PO (01:41)
[2017-01-11] MEDS ORDERED: RANI1TAB5 PO (01:41)
[2017-01-11 01:47] LABS: AUTOMATED NEUTROPHIL # 19.7 TH/MM3 (1.8-7.7); BASOPHIL % 0.2 % (0.0-2.0); EOSINOPHIL # 0.1 TH/MM3 (0-0.4); EOSINOPHIL % 0.6 % (0.0-4.0); HEMATOCRIT 34.6 % (35.0-46.0); LYMPHOCYTE # 0.9 TH/MM3 (1.0-4.8); MEAN CELL VOLUME 87.2 FL (80.0-100.0); MEAN CORPUSCULAR HEMOGLOBIN 28.4 PG (27.0-34.0); MEAN CORPUSCULAR HGB CONC 32.6 % (32.0-36.0); MONO % 4.5 % (0.0-8.0); NEUT % 90.7 % (16.0-70.0); PLATELET COUNT 299 TH/MM3 (150-450); RED BLOOD COUNT 3.97 MIL/MM3 (4.00-5.30); RED CELL DISTRIBUTION WIDTH 14.9 % (11.6-17.2); WHITE BLOOD COUNT 21.7 TH/MM3 (4.0-11.0)
[2017-01-11 01:48] LABS: HEMO FLAGS DIFF FINAL
[2017-01-11 01:53] LABS: BICARBONATE 30.6 MEQ/L (21.0-32.0)
[2017-01-11 01:54] LABS: APTT (PATIENT) 29.4 SEC (24.3-30.1); INTERNATIONAL NORMALIZED RATIO 1.4 RATIO; PROTHROMBIN TIME - PATIENT 16.1 SEC (9.8-11.6)
[2017-01-11] MEDS ORDERED: METOCLOPRAMIDE HCL 10 MG/2 ML VIAL IVS ONE (02:00)
[2017-01-11] MEDS ORDERED: ONDANSETRON HCL 4 MG/2 ML VIAL IV ONE (02:00)
[2017-01-11] MEDS: SODIUM CHLOR 0.9% 1000 ML INJ 1,000 ML IV SCH ×2 (02:02→02:49)
--- NOTE | 2017-01-11 02:02 | PD ---
HPI Chief Complaint: GI Complaint Time Seen by Provider: 01:45 Travel History International Travel<30 days: No Contact w/Intl Traveler<30days: No Traveled to known affect area: No History of Present Illness HPI The patient is a 76-year-old female that was nauseated all day yesterday and then 5 PM yesterday started vomiting. She was constipated and took some MiraLAX as well as prune juice. This resulted in a large bowel movement just as the ambulance arrived to pick her to take her to the hospital. She denies any abdominal pain initially but does have some discomfort in the bilateral lower quadrants. She has had a hysterectomy and still has her appendix and gallbladder however. The patient takes Coumadin, apparently for her coronary artery bypass graft that she received in 2012. She is an insulin-dependent diabetic. She has not taken her Coumadin yesterday, only her insulin. She also has stage III renal insufficiency. Her primary care physician is Dr. Drew. [facility] Past Medical History Heart Rhythm Problems: No Cancer: No Cardiovascular Problems: Yes High Cholesterol: Yes Chest Pain: No Congestive Heart Failure: No Diabetes: Yes Patient Takes Glucophage: No Diminished Hearing: Yes (DIMINISHED HEARING RIGHT EAR) Endocrine: Yes Genitourinary: No Hypertension: Yes Immune Disorder: No Musculoskeletal: No Neurologic: No Psychiatric: No Reproductive: No Respiratory: No Immunizations Current: Yes Thyroid Disease: No Tetanus Vaccination: Unknown Influenza Vaccination: No ?: Not Menopausal: No Past Surgical History Cardiac Surgery: Yes (cabg 2012) Ear Surgery: No 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 Coumadin (Warfarin) 1 Mg Tab 1 Mg PO DAILY Humulin N Inj (Insulin Human NPH) 1,000 Unit/10 Ml Vial 6 Units SQ HS Humulin N Inj (Insulin Human NPH) 1,000 Unit/10 Ml Vial 21 Units SQ AC BREAKFAST Calcitriol 0.25 Mcg Cap 0.25 Mcg PO DAILY Lisinopril 5 Mg Tab 5 Mg PO DAILY Rosuvastatin (Rosuvastatin Calcium) 20 Mg Tab 20 Mg PO DAILY Aspirin 81 Mg Chew 81 Mg CHEW DAILY Carvedilol 3.125 Mg Tab 3.125 Mg PO BID Review of Systems Except as stated in HPI: all other systems reviewed are Neg Physical Exam Narrative GENERAL: The patient appears moderately dehydrated, alert, oriented 3 in moderate apparent distress with her abdominal discomfort. Her vital signs show blood pressure 192/78 with respirations of 22 but otherwise unremarkable. SKIN: Focused skin assessment warm/dry. HEAD: Atraumatic. Normocephalic. EYES: Pupils equal and round. No scleral icterus. No injection or drainage. ENT: No nasal bleeding or discharge. Mucous membranes pink and moist. NECK: Trachea midline. No JVD. CARDIOVASCULAR: Regular rate and rhythm. No murmur appreciated. RESPIRATORY: No accessory muscle use. Clear to auscultation. Breath sounds equal bilaterally. GASTROINTESTINAL: Abdomen soft, with tenderness to direct palpation in the bilateral lower quadrants, nondistended. Hepatic and splenic margins not palpable. No guarding or rebound is present. MUSCULOSKELETAL: No obvious deformities. No clubbing. No cyanosis. No edema. NEUROLOGICAL: Awake and alert. No obvious cranial nerve deficits. Motor grossly within normal limits. Normal speech. PSYCHIATRIC: Appropriate mood and affect; insight and judgment normal. Data Data Last Documented VS Vital Signs Date Time Temp Pulse Resp B/P (MAP) Pulse Ox O2 Delivery O2 Flow Rate FiO2 01/11/17 01:11 98.3 84 22 192/78 (116) 95 Orders Orders Ondansetron Inj (Zofran Inj) (01/11/17 01:22) Complete Blood Count With Diff (01/11/17 01:32) Basic Metabolic Panel (Bmp) (01/11/17 01:32) Coag Profile (01/11/17 01:32) Ondansetron Inj (Zofran Inj) (01/11/17 02:00) Metoclopramide Inj (Reglan Inj) (01/11/17 02:00) Sodium Chlor 0.9% 1000 Ml Inj (Ns 1000 M (01/11/17 02:00) Ct Abd/Pel W Iv Contrast(Rout) (01/11/17 02:05) Oral Contrast - Adult (01/11/17 02:12) Diatrizoate Liq ( Gastroview Liq) (01/11/17 02:30) Lipase (01/11/17 01:35) Lactic Acid Sepsis Protocol (01/11/17 02:36) Blood Culture (01/11/17 02:36) Hepatic Functional Panel (01/11/17 01:35) Urinalysis - C+S If Indicated (01/11/17 03:22) Urine Culture (01/11/17 03:26) Iohexol 350 Inj (Omnipaque 350 Inj) (01/11/17 00:55) Prochlorperazine Inj (Compazine Inj) (01/11/17 04:00) Admit Order (Ed Use Only) (01/11/17 03:56) Labs Laboratory Tests Test 01/11/17 01:35 01/11/17 02:55 01/11/17 03:26 White Blood Count 21.7 TH/MM3 Red Blood Count 3.97 MIL/MM3 Hemoglobin 11.3 GM/DL Hematocrit 34.6 % Mean Corpuscular Volume 87.2 FL Mean Corpuscular Hemoglobin 28.4 PG Mean Corpuscular Hemoglobin Concent 32.6 % Red Cell Distribution Width 14.9 % Platelet Count 299 TH/MM3 Mean Platelet Volume 8.2 FL Neutrophils (%) (Auto) 90.7 % Lymphocytes (%) (Auto) 4.0 % Monocytes (%) (Auto) 4.5 % Eosinophils (%) (Auto) 0.6 % Basophils (%) (Auto) 0.2 % Neutrophils # (Auto) 19.7 TH/MM3 Lymphocytes # (Auto) 0.9 TH/MM3 Monocytes # (Auto) 1.0 TH/MM3 Eosinophils # (Auto) 0.1 TH/MM3 Basophils # (Auto) 0.0 TH/MM3 CBC Comment DIFF FINAL Differential Comment Prothrombin Time 16.1 SEC Prothromb Time International Ratio 1.4 RATIO Activated Partial Thromboplast Time 29.4 SEC Blood Urea Nitrogen 21 MG/DL Creatinine 1.10 MG/DL Random Glucose 292 MG/DL Total Protein 7.2 GM/DL Albumin 2.7 GM/DL Calcium Level 9.0 MG/DL Alkaline Phosphatase 141 U/L Aspartate Amino Transf (AST/SGOT) 26 U/L Alanine Aminotransferase (ALT/SGPT) 16 U/L Total Bilirubin 0.7 MG/DL Direct Bilirubin 0.2 MG/DL Sodium Level 133 MEQ/L Potassium Level 4.0 MEQ/L Chloride Level 96 MEQ/L Carbon Dioxide Level 30.6 MEQ/L Anion Gap 6 MEQ/L Estimat Glomerular Filtration Rate 48 ML/MIN Indirect Bilirubin 0.5 MG/DL Lipase 66 U/L Lactic Acid Level 1.3 mmol/L Urine Color YELLOW Urine Turbidity SLIGHT Urine pH 7.0 Urine Specific [place] 1.017 Urine Protein 30 mg/dL Urine Glucose (UA) 1000 OR GREATER mg/dL Urine Ketones TRACE mg/dL Urine Occult Blood LARGE Urine Nitrite NEG Urine Bilirubin NEG Urine Leukocyte Esterase TRACE Urine RBC 15-19 /hpf Urine WBC 6-8 /hpf Urine Squamous Epithelial Cells 6-8 /hpf Urine Bacteria MOD /hpf Microscopic Urinalysis Comment CULTURE INDICATED MDM Medical Decision Making Medical Screen Exam Complete: Yes Emergency Medical Condition: Yes Medical Record Reviewed: Yes Interpretation(s) The urine shows slight turbidity, 1000 or greater glucose, trace ketones, large occult blood with trace leukocyte esterase and 15-19 red cells and 6-8 white cells and moderate bacteria and culture is indicated. The CBC shows a white count of 21,700 with a hemoglobin 11.3 and hematocrit of 34.6. The neutrophils are 91%. The complete metabolic profile shows a glucose of 292, GFR of 48, creatinine 1.1 with sodium of 133 and alkaline phosphatase of 141 and albumen 2.7 is otherwise normal. The lipase is normal and the lactic acid is normal. The ProTime is 16.1 and the INR is 1.4. The CT abdomen/pelvis with contrast shows small bilateral pleural effusions with associated passive atelectasis, 7 mm nonobstructive right renal stone, no acute bowel obstruction, suspected high- grade stenosis versus short segment occlusion involving the left iliac artery. Differential Diagnosis Colitis, small bowel obstruction, gastritis, pancreatitis, dehydration, electrolyte disorder, anemia, renal insufficiency Narrative Course It is now 0354 and the patient still has slight nausea. She has already been given 8 mg of Zofran IV, 10 mg of Reglan IV and is getting 10 mg of Compazine IV. Sepsis Criteria SIRS Criteria (2 or more): RR > 20 or PaCO2 < 32, WBC > 96545, < 4000 or > 10 % bands Diagnosis Primary Impression: Nausea & vomiting Additional Impressions: Dehydration, moderate Pyelonephritis Adarsh Bhat MD Jan 11, 2017 02:02
[2017-01-11] MEDS ORDERED: DIATRIZOATE MEGLUM/DIATRIZOATE SOD 9 ML CUP PO ONE (02:30)
[2017-01-11 02:53] LABS: INDIRECT BILIRUBIN 0.5 MG/DL (0.0-0.8); TOTAL BILIRUBIN ADULT 0.7 MG/DL (0.2-1.0)
[2017-01-11 03:31] LABS: BLOOD, URINE LARGE (NEG); GLUCOSE,URINE 1000 OR GREATER mg/dL (NEG); KETONE, URINE TRACE mg/dL (NEG); NITRITE,URINE NEG (NEG)
[2017-01-11 03:37] LABS: URINE COLOR YELLOW (YELLW/STRAW)
[2017-01-11 03:38] LABS: BACTERIA, URINE MOD /hpf; COMMENT (UR) CULTURE INDICATED; CULTURE IF INDICATED CULTURE INDICATED; RBC, URINE 15-19 /hpf (0-3)
--- NOTE | 2017-01-11 03:58 | RADRPT ---
EXAM DATE/TIME: 01/11/2017 03:24 [place] COMPARISON: No previous studies available for comparison. INDICATIONS : Nausea and vomiting for 1 day. Unable to keep anything down. IV CONTRAST: 92 cc Omnipaque 350 (iohexol) IV ORAL CONTRAST: Partial prescribed oral contrast ingested. RADIATION DOSE: 9.39 CTDIvol (mGy) MEDICAL HISTORY : Diabetes mellitus type 2. Cardiovascular disease Hypertension. SURGICAL HISTORY : Hysterectomy. Hip sagar ENCOUNTER: Initial ACUITY: 1 day PAIN SCALE: 6/10 LOCATION: abdomen TECHNIQUE: Volumetric scanning of the abdomen and pelvis was performed. Using automated exposure control and ad justment of the mA and/or kV according to patient size, radiation dose was kept as low as reasonably achievable to obtain optimal diagnostic quality images. DICOM format image data is available electro nically for review and comparison. FINDINGS: LOWER LUNGS: Small bilateral pleural effusions with associated passive atelectasis. Small hiatal hernia. LIVER: Homogeneous density without lesion. There is no dilation of the biliary tree. No calcified gallston es. SPLEEN: Normal size without lesion. PANCREAS: Within normal limits. KIDNEYS: Normal in size and shape. There is no mass or hydronephrosis. A 7 mm stone is seen involving the charimsa al pelvis on the right. ADRENAL GLANDS: Within normal limits. VASCULAR: Heavily calcified atherosclerotic plaque involving the aorta and inflow vessels. Either high grade st enosis or possible short segment occlusion involving the left inflow. BOWEL/MESENTERY: The stomach, small bowel, and colon demonstrate no acute abnormality. There is no free intraperitone al air or fluid. ABDOMINAL WALL: Within normal limits. RETROPERITONEUM: There is no lymphadenopathy. BLADDER: No wall thickening or mass. REPRODUCTIVE: Within normal limits. INGUINAL: There is no lymphadenopathy or hernia. MUSCULOSKELETAL: Beam hardening artifact from a right hip intramedullary sagar. CONCLUSION: 1. Small bilateral pleural effusions with associated passive atelectasis. 2. 7 mm nonobstructing right renal stone. 3. No acute abnormality. 4. Suspected high grade stenosis versus short segment occlusion involving the left inflow. Clinical e valuation for any signs of left lower extremity or buttock claudication suggested. Jonathan Abel Jr., MD on January 11, 2017 at 3:53 Board Certified Radiologist. This report was verified electronically.
[2017-01-11] MEDS ORDERED: PROCHLORPERAZINE INJ 10 MG/2 ML VIAL IV PUSH ONE (04:00)
[2017-01-11] MEDS ORDERED: NALOXONE HCL 0.4 MG/ML AMP IV PUSH PRN (05:30)
[2017-01-11] MEDS ORDERED: SODIUM CHLORIDE 0.9% FLUSH 10 ML FLUSH IV FLUSH PRN (05:30)
[2017-01-11] MEDS: SODIUM CHLORIDE 0.9% FLUSH 10 ML FLUSH IV FLUSH SCH ×2 (08:11→21:05)
[2017-01-11] MEDS ORDERED: GLUCAGON 1 MG/ML VIAL IM PRN (11:15)
[2017-01-11] MEDS ORDERED: DEXTROSE 50% IN WATER 50 ML VIAL(D50) IV PUSH PRN (11:15)
[2017-01-11] MEDS ORDERED: GLUCAGON 1 MG/ML VIAL OTHER PRN (11:15)
--- NOTE | 2017-01-11 11:27 | HHI.HP ---
[facility] James Drew MD Admission Diagnosis intractable nausea & vomiting, pyelonephritis Diagnoses: Chief Complaint: Nausea and vomiting Travel History International Travel<30 Days: No Contact w/Intl Traveler <30 Da: No Traveled to Known Affected Are: No History of Present Illness Patient is a very pleasant 76-year-old female with of nausea and vomiting and of acute onset yesterday evening prior to arrival in the emergency room. She noted that from 6:00 to 11:00 she had increased nausea and vomiting which was not amenable to any treatments or biofeedback. She came to the emergency room and was given some Zofran. She says that she has been quite constipated and saw her primary doctor who recommended MiraLAX. That did not work and she became more nauseated. She took prune juice and then had nausea and vomiting. Since she's been here in the emergency room she is moved her bowels twice and has felt much better. She in fact says she had some abdominal distention which is resolved. She associates these complaints with her home narcotics which were given post surgery. she did have a repair of her right femoral fracture with sagar. She notes that her constipation abdominal troubles started after that. She is not having any fevers or chills. She has not had any dysuria or hematuria or frequency. The patient says that she has never been prone to but urinary tract infections. Her urinalysis is abnormal here. Of note she admits anemia perioperatively requiring 4 units of packed red blood cells. She has chronic kidney disease. She has been nonweightbearing on the right leg since her discharge from the hospital in. With the local orthopedist. Patient's been recommended for observation due to the symptoms and is still finding of a urinalysis which is abnormal and associated leukocytosis. Review of Systems Constitutional: DENIES: Diaphoretic episodes, Fatigue, Fever, Weight gain, Weight loss, Chills, Dizziness, Change in appetite, Night Sweats Endocrine: DENIES: Abnorml menstrual pattern, Heat/cold intolerance, Polydipsia , Polyuria, Polyphagia Eyes: DENIES: Blurred vision, Diplopia, Eye inflammation, Eye pain, Vision loss , Photosensitivity, Double Vision Gastrointestinal: COMPLAINS OF: Abdominal pain, Nausea, Vomiting Genitourinary: DENIES: Abnormal vaginal bleeding, Dysmenorrhea, Dyspareunia, Sexual dysfunction, Urinary frequency, Urinary incontinence, Urgency, Hematuria , Dysuria, Nocturia, Vaginal discharge Musculoskeletal: COMPLAINS OF: Joint pain (post fracture), DENIES: Muscle aches , Stiffness, Joint Swelling, Back pain, Neck pain Integumentary: DENIES: Abnormal pigmentation, Pruritus, Rash, Nail changes, Breast masses, Breast skin changes, Nipple discharge Hematologic/lymphatic: DENIES: Bruising, Lymphadenopathy Immunologic/allergic: DENIES: Eczema, Urticaria Neurologic: COMPLAINS OF: Abnormal gait (uses a walker), DENIES: Headache, Localized weakness, Paresthesias, Seizures, Speech Problems, Tremor, Poor Balance Psychiatric: DENIES: Anxiety, Confusion, Mood changes, Depression, Hallucinations, Agitation, Suicidal Ideation, Homicidal Ideation, Delusions Except as stated in HPI: all other systems reviewed are Neg Past Family Social History Past Medical History Diabetes Coronary artery disease Past Surgical History Cardiac bypass Recent femoral sagar placement for fracture Hysterectomy Reported Medications Reviewed in the EMR, recent narcotics for pain management Allergies: Coded Allergies: morphine (Unverified Allergy, Intermediate, VOMITING, 01/11/17) Active Ordered Medications Reviewed in the EMR Family History Patient does not recall Social History , no tobacco or alcohol dependency, recent travel to [place] last month Physical Exam Vital Signs Vital Signs Date Time Temp Pulse Resp B/P (MAP) Pulse Ox O2 Delivery O2 Flow Rate FiO2 01/11/17 08:05 98.0 76 20 132/74 (93) 97 01/11/17 06:00 88 01/11/17 05:30 97.7 89 16 146/70 (95) 93 01/11/17 04:44 90 18 169/76 (107) 97 Room Air 01/11/17 01:11 98.3 84 22 192/78 (116) 95 Physical Exam GENERAL: This is a well-nourished, well-developed patient, in no apparent distress. SKIN: No rashes, ecchymoses or lesions. Cool and dry. HEAD: Atraumatic. Normocephalic. No temporal or scalp tenderness. EYES: Pupils equal round and reactive. Extraocular motions intact. No scleral icterus. No injection or drainage. ENT: Nose without bleeding, purulent drainage or septal hematoma. Throat without erythema, tonsillar hypertrophy or exudate. Uvula midline. Airway patent. NECK: Trachea midline. No JVD or lymphadenopathy. Supple, nontender, no meningeal signs. CARDIOVASCULAR: Regular rate and rhythm without murmurs, gallops, or rubs. RESPIRATORY: Clear to auscultation. Breath sounds equal bilaterally. No wheezes , rales, or rhonchi. GASTROINTESTINAL: Abdomen soft, non-tender, nondistended. No hepato-splenomegaly , or palpable masses. No guarding. MUSCULOSKELETAL: Extremities without clubbing, cyanosis, or edema. No joint tenderness, effusion, or edema noted. No calf tenderness. Negative Homans sign bilaterally. NEUROLOGICAL: Awake and alert. Cranial nerves II through XII intact. Motor and sensory grossly within normal limits. Five out of 5 muscle strength in all muscle groups. Normal speech. Laboratory Laboratory Tests Test 01/11/17 01:35 01/11/17 02:55 01/11/17 03:26 White Blood Count 21.7 Red Blood Count 3.97 Hemoglobin 11.3 Hematocrit 34.6 Mean Corpuscular Volume 87.2 Mean Corpuscular Hemoglobin 28.4 Mean Corpuscular Hemoglobin Concent 32.6 Red Cell Distribution Width 14.9 Platelet Count 299 Mean Platelet Volume 8.2 Neutrophils (%) (Auto) 90.7 Lymphocytes (%) (Auto) 4.0 Monocytes (%) (Auto) 4.5 Eosinophils (%) (Auto) 0.6 Basophils (%) (Auto) 0.2 Neutrophils # (Auto) 19.7 Lymphocytes # (Auto) 0.9 Monocytes # (Auto) 1.0 Eosinophils # (Auto) 0.1 Basophils # (Auto) 0.0 CBC Comment DIFF FINAL Differential Comment Prothrombin Time 16.1 Prothromb Time International Ratio 1.4 Activated Partial Thromboplast Time 29.4 Blood Urea Nitrogen 21 Creatinine 1.10 Random Glucose 292 Total Protein 7.2 Albumin 2.7 Calcium Level 9.0 Alkaline Phosphatase 141 Aspartate Amino Transf (AST/SGOT) 26 Alanine Aminotransferase (ALT/SGPT) 16 Total Bilirubin 0.7 Direct Bilirubin 0.2 Sodium Level 133 Potassium Level 4.0 Chloride Level 96 Carbon Dioxide Level 30.6 Anion Gap 6 Estimat Glomerular Filtration Rate 48 Indirect Bilirubin 0.5 Lipase 66 Lactic Acid Level 1.3 Urine Color YELLOW Urine Turbidity SLIGHT Urine pH 7.0 Urine Specific [place] 1.017 Urine Protein 30 Urine Glucose (UA) 1000 OR GREATER Urine Ketones TRACE Urine Occult Blood LARGE Urine Nitrite NEG Urine Bilirubin NEG Urine Leukocyte Esterase TRACE Urine RBC 15-19 Urine WBC 6-8 Urine Squamous Epithelial Cells 6-8 Urine Bacteria MOD Microscopic Urinalysis Comment CULTURE INDICATED Date/Time Source Procedure Growth Status 01/11/17 03:05 Blood Peripheral Aerobic Blood Culture Pending Received 01/11/17 03:05 Blood Peripheral Anaerobic Blood Culture Pending Received 01/11/17 03:26 Urine Clean Catch Urine Culture Pending Received Result Diagram: 01/11/17 0135 01/11/17 0135 Imaging Last Impressions Abdomen/Pelvis CT 01/11/17 0205 Signed Impressions: Service Date/Time: Wednesday, January 11, 2017 03:24 - CONCLUSION: 1. Small bilateral pleural effusions with associated passive atelectasis. 2. 7 mm nonobstructing right renal stone. 3. No acute abnormality. 4. Suspected high grade stenosis versus short segment occlusion involving the left inflow. Clinical evaluation for any signs of left lower extremity or buttock claudication suggested. MD Radha Abebe Jr. VTE Risk Assessment Caprini VTE Risk Assessment: Mod/High Risk (score >= 2) Caprini Risk Assessment Model Point Value = 1 Point Value = 2 Point Value = 3 Point Value = 5 Age 41-60 Minor surgery BMI > 25 kg/m2 Swollen legs Varicose veins or History of unexplained or recurrent spontaneous Oral contraceptives or hormone replacement Sepsis (< 1 month) Serious lung disease, including pneumonia (< 1 month) Abnormal pulmonary function Acute myocardial infarction Congestive heart failure (< 1 month) History of inflammatory bowel disease Medical patient at bed rest Age 61-74 Arthroscopic surgery Major open surgery (> 45 min) Laparoscopic surgery (> 45 min) Malignancy Confined to bed (> 72 hours) Immobilizing plaster cast Central venous access Age >= 75 History of VTE Family history of VTE Factor V Leiden Prothrombin [id number] Lupus anticoagulant Anticardiolipin antibodies Elevated serum homocysteine Heparin-induced thrombocytopenia Other congenital or acquired thrombophilia Stroke (< 1 month) Elective arthroplasty Hip, pelvis, or leg fracture Acute spinal cord injury (< 1 month) Prophylaxis Regimen Total Risk Factor Score Risk Level Prophylaxis Regimen 0-1 Low Early ambulation 2 Moderate Order ONE of the following: *Sequential Compression Device (SCD) *Heparin 5000 units SQ BID 3-4 Higher Order ONE of the following medications: *Heparin 5000 units SQ TID *Enoxaparin/Lovenox 40 mg SQ daily (WT < 150 kg, CrCl > 30 mL/min) *Enoxaparin/Lovenox 30 mg SQ daily (WT < 150 kg, CrCl > 10-29 mL/min) *Enoxaparin/Lovenox 30 mg SQ BID (WT < 150 kg, CrCl > 30 mL/min) AND/OR *Sequential Compression Device (SCD) 5 or more Highest Order ONE of the following medications: *Heparin 5000 units SQ TID (Preferred with Epidurals) *Enoxaparin/Lovenox 40 mg SQ daily (WT < 150 kg, CrCl > 30 mL/min) *Enoxaparin/Lovenox 30 mg SQ daily (WT < 150 kg, CrCl > 10-29 mL/min) *Enoxaparin/Lovenox 30 mg SQ BID (WT < 150 kg, CrCl > 30 mL/min) AND *Sequential Compression Device (SCD) Assessment and Plan Problem List: (1) Constipation ICD Code: K59.00 - Constipation, unspecified Plan: Probably due to narcotics and poor mobility Continue bowel prep Check C. difficile due to recent hospitalization, most likely this is diarrhea from attempt to correct constipation with MiraLAX and prune juice Follow leukocytosis (2) Abnormal urinalysis ICD Code: R82.90 - Unspecified abnormal findings in urine Plan: Without symptoms of urinary tract infection, will follow cultures Empiric antibiotics and follow leukocytosis (3) CKD stage 3 secondary to diabetes ICD Code: E11.22 - Type 2 diabetes mellitus with diabetic chronic kidney disease; N18.3 - Chronic kidney disease, stage 3 (moderate) Plan: Stable, continue calcitriol and avoid further nephrotoxic injury (4) DM2 (diabetes mellitus, type 2) ICD Code: E11.9 - Type 2 diabetes mellitus without complications Plan: Resume home insulin, diabetic diet and sliding scale with insulin and Accu-Cheks (5) Nausea & vomiting ICD Code: R11.2 - Nausea with vomiting, unspecified Status: Acute Plan: Likely due to constipation, continue bowel regimen Zofran as needed (6) Femur fracture ICD Code: S72.90XA - Unspecified fracture of unspecified femur, initial encounter for closed fracture Plan: Surgery 12/27 (in [place]) with nonweightbearing status on the right lower extremity and assisted medical insurance coder patient had been on narcotics and had nausea and constipation associated with her perioperative course Assessment and Plan Continue warfarin, INR 1.4 Code Status Full code Discussed Condition With Patient In overall improved, C. difficile negative, and leukocytosis improved likely discharge in Neha Barton MD Jan 11, 2017 11:27
[2017-01-11] MEDS ORDERED: ACETAMINOPHEN/CODEINE 300 MG/30 MG TAB PO PRN (11:30)
[2017-01-11] MEDS ORDERED: ONDANSETRON HCL 4 MG/2 ML VIAL IV PUSH PRN (11:30)
[2017-01-11] MEDS: INSULIN HUMAN NPH 1,000 UNITS/10 ML VIAL SQ SCH (11:52)
[2017-01-11] MEDS: cefTRIAXone INJ 1,000 MG in SODIUM CHLORIDE 0.9% INJ 100 ML IV SCH (11:54)
[2017-01-11] MEDS: INSULIN ASPART SUPPLEMENTAL SCALE SQ SCH ×3 (12:00→21:07)
[2017-01-11] MEDS: ASPIRIN 81 MG CHEW TAB CHEW SCH (12:01)
[2017-01-11] MEDS: CARVEDILOL 3.125 MG TAB PO SCH ×2 (12:01→21:05)
[2017-01-11] MEDS: FAMOTIDINE 20 MG TAB PO SCH ×2 (12:04→21:16)
[2017-01-11] MEDS: LISINOPRIL 5 MG TAB PO SCH (12:05)
[2017-01-11] MEDS: CALCITRIOL 0.25 MCG CAP PO SCH (14:21)
[2017-01-11] MEDS ORDERED: WARFARIN SOD 1 MG TAB PO SCH (16:00)
[2017-01-11] MEDS ORDERED: ATORVASTATIN 40 MG TAB PO SCH (21:00)
[2017-01-11] MEDS ORDERED: INSULIN HUMAN NPH 1,000 UNITS/10 ML VIAL SQ SCH (21:00)
[2017-01-11] MEDS: DOCUSATE SODIUM 100 MG CAP PO SCH (21:04)
[2017-01-12 04:52] VITALS: BP 104/60; PULSE 68; RESP 16; TEMP 98.1; O2SAT 96
[2017-01-12 07:52] LABS: AUTOMATED NEUTROPHIL # 9.3 TH/MM3 (1.8-7.7); BASOPHIL # 0.1 TH/MM3 (0-0.2); BASOPHIL % 0.5 % (0.0-2.0); EOSINOPHIL # 0.5 TH/MM3 (0-0.4); EOSINOPHIL % 3.9 % (0.0-4.0); HEMATOCRIT 29.5 % (35.0-46.0); LYMPH % 13.7 % (9.0-44.0); LYMPHOCYTE # 1.7 TH/MM3 (1.0-4.8); MEAN CELL VOLUME 88.6 FL (80.0-100.0); MEAN CORPUSCULAR HGB CONC 32.7 % (32.0-36.0); MONO % 7.2 % (0.0-8.0); NEUT % 74.7 % (16.0-70.0); PLATELET COUNT 169 TH/MM3 (150-450); RED BLOOD COUNT 3.33 MIL/MM3 (4.00-5.30); RED CELL DISTRIBUTION WIDTH 15.3 % (11.6-17.2); WHITE BLOOD COUNT 12.5 TH/MM3 (4.0-11.0)
[2017-01-12 07:57] LABS: HEMO FLAGS AUTO DIFF
[2017-01-12 08:00] VITALS: BP 144/70; PULSE 80; RESP 18; TEMP 97; O2SAT 97
[2017-01-12 08:18] LABS: EOSINOPHILS 1 % (0-4); NEUTROPHIL # MANUAL DIFF 10.5 TH/MM3 (1.8-7.7); PLATELET ESTIMATE SMEAR NORMAL (NORMAL); PLATELET MORPHOLOGY CLUMPED (NORMAL); POLYS (SEG NEUTROPHILS) 84 % (16-70); WBC DIFF SAMPLE 100
[2017-01-12 08:19] LABS: SCAN/DIFF FINAL DIFF MANUAL
[2017-01-12] MEDS: INSULIN ASPART SUPPLEMENTAL SCALE SQ SCH (08:24)
[2017-01-12] MEDS: ASPIRIN 81 MG CHEW TAB CHEW SCH (08:25)
[2017-01-12] MEDS: FAMOTIDINE 20 MG TAB PO SCH (08:25)
[2017-01-12] MEDS: LISINOPRIL 5 MG TAB PO SCH (08:25)
[2017-01-12] MEDS: DOCUSATE SODIUM 100 MG CAP PO SCH (08:25)
[2017-01-12] MEDS: INSULIN HUMAN NPH 1,000 UNITS/10 ML VIAL SQ SCH (08:25)
[2017-01-12] MEDS: CARVEDILOL 3.125 MG TAB PO SCH (08:25)
[2017-01-12] MEDS: SODIUM CHLORIDE 0.9% FLUSH 10 ML FLUSH IV FLUSH SCH (08:26)
[2017-01-12] MEDS: CALCITRIOL 0.25 MCG CAP PO SCH (08:26)
[2017-01-12 09:04] LABS: POTASSIUM 3.9 MEQ/L (3.5-5.1)
[2017-01-12 09:06] LABS: BICARBONATE 29.1 MEQ/L (21.0-32.0)
[2017-01-12] MEDS: cefTRIAXone INJ 1,000 MG in SODIUM CHLORIDE 0.9% INJ 100 ML IV SCH (10:37)
[2017-01-12] MEDS ORDERED: ACET-534 PO (11:47)
[2017-01-12] MEDS ORDERED: CIPR500T2 PO (11:47)
[2017-01-12] MEDS ORDERED: LACTTAB8 PO (11:47)
--- NOTE | 2017-01-12 11:50 | HHI.PR ---
Objective Vitals Vital Signs Date Time Temp Pulse Resp B/P (MAP) Pulse Ox O2 Delivery O2 Flow Rate FiO2 01/12/17 08:00 97.0 80 18 144/70 (94) 97 01/12/17 04:52 98.1 68 16 104/60 (75) 96 01/11/17 23:57 98.0 70 16 115/63 (80) 95 01/11/17 20:00 98.4 76 20 123/61 (81) 94 01/11/17 16:05 98.7 81 20 130/57 (81) 93 01/11/17 14:00 80 01/11/17 12:37 98.0 92 24 152/83 (106) 99 I/O 01/11/17 01/11/17 01/11/17 01/12/17 01/12/17 01/12/17 06:59 14:59 22:59 06:59 14:59 22:59 Intake Total 2120 ml 580 ml 2 ml Output Total 50 ml 0 ml Balance 2070 ml 580 ml 2 ml Intake Oral 120 ml 480 ml IV Total 2000 ml 100 ml 2 ml Output Urine Total 0 ml Stool Total 0 ml Emesis 50 ml # Voids 1 2 2 # Bowel Movements 0 2 Result Diagram: 01/12/17 0636 01/12/17 0819 A/P Problem List: (1) Constipation ICD Code: K59.00 - Constipation, unspecified Plan: Probably due to narcotics and poor mobility Continue bowel regimen c diff unlikely due to formed stools, most likely this is diarrhea from attempt to correct constipation with MiraLAX and prune juice improved leukocytosis (2) Abnormal urinalysis ICD Code: R82.90 - Unspecified abnormal findings in urine Plan: Without symptoms of urinary tract infection, will follow cultures Empiric cipro (3) CKD stage 3 secondary to diabetes ICD Code: E11.22 - Type 2 diabetes mellitus with diabetic chronic kidney disease; N18.3 - Chronic kidney disease, stage 3 (moderate) (4) DM2 (diabetes mellitus, type 2) ICD Code: E11.9 - Type 2 diabetes mellitus without complications Plan: Resume home insulin, diabetic diet and sliding scale with insulin and Accu-Cheks (5) Nausea & vomiting ICD Code: R11.2 - Nausea with vomiting, unspecified Status: Acute Plan: resolved (6) Femur fracture ICD Code: S72.90XA - Unspecified fracture of unspecified femur, initial encounter for closed fracture Plan: Surgery 12/27 (in [place]) with nonweightbearing status on the right lower extremity and assisted medical laboratory technologist patient had been on narcotics and had nausea and constipation associated with her perioperative course Discharge Planning d/c home Activity: Nonweightbearing right lower extremity Diet diabetic Neha Medina MD Jan 12, 2017 11:50
--- NOTE | 2017-01-12 11:53 | HHI.DCPOC ---
Discharge Care Plan Diagnosis: (1) Constipation Goals to Promote Your Health * To prevent worsening of your condition and complications * To maintain your health at the optimal level Directions to Meet Your Goals Take your medications as prescribed Follow your dietary instruction Follow activity as directed Keep your appointments as scheduled Take your immunizations and boosters as scheduled If your symptoms worsen call your PCP, if no PCP go to Urgent Care Center or Emergency Room Smoking is Dangerous to Your Health. Avoid second hand smoke Call the 24-hour hour crisis hotline for domestic abuse at Neha Medina MD Jan 12, 2017 11:53
== END 2017-01-12 12:33 | disposition home or self-care (01) ==
LOC: PHED 00:54 → UNDOADMIN 04:00 → PHEDA 04:00 → INTOOBSV 05:20 → PH5A 05:30 → PH3B 14:53
PROVIDERS: ADMIT Hospitalist; ATTEND Hospitalist
DX: R11.2 Nausea with vomiting, unspecified (principal); K59.00 Constipation, unspecified; R82.90 Unspecified abnormal findings in urine; B96.20 Unspecified Escherichia coli [E. coli] as the cause of diseases classified elsewhere; R19.7 Diarrhea, unspecified; I12.9 Hypertensive chronic kidney disease with stage 1 through stage 4 chronic kidney disease, or unspecified chronic kidney disease; E11.22 Type 2 diabetes mellitus with diabetic chronic kidney disease; N18.3 Chronic kidney disease, stage 3 (moderate); I25.10 Atherosclerotic heart disease of native coronary artery without angina pectoris; E78.00 Pure hypercholesterolemia, unspecified; Z95.1 Presence of aortocoronary bypass graft; Z79.01 Long term (current) use of anticoagulants
CPT/HCPCS: 74177; 80048; 80076; 81001; 82947; 82948; 83605; 83690; 85007; 85025; 85027; 85610; 85730; 87040; 87077; 87086; 87186; 96361; 96365; 96372; 96375; 99285; G0378; J0696; J0780; J1815; J2765; J7030; Q9963; Q9967; J2405

== ENCOUNTER 2017-12-14 13:19 | Inpatient (IN) ==
--- NOTE | 2017-12-14 13:47 | ED ---
HPI General Chief complaint: Nausea/Vomiting/Diarrhea Stated complaint: Vomiting/abd pain x this morning Source: patient, family, RN notes reviewed and old records reviewed Mode of arrival: ambulatory Limitations: no limitations History of Present Illness HPI Narrative: 77-year-old female presents with nonbloody vomiting and diarrhea with diffuse abdominal pain since this morning. She states she did not take her insulin as she has not been eating. She denies any other concurrent complaints. Patient is intermittently having active emesis so history is difficult to obtain on initial evaluation. help confirms history. Related Data Home Medications Medication Instructions Recorded Confirmed aspirin [Aspirin Low Dose] 81 mg PO DAILY 12/14/17 12/14/17 calcitriol 0.25 mcg PO 3XW 12/14/17 12/14/17 carvedilol 3.125 mg PO BID 12/14/17 12/14/17 insulin lispro [Humalog U-100 6 unit SUB-Q PCHS 12/14/17 12/14/17 Insulin] insulin lispro [Humalog U-100 21 unit SUB-Q QAM 12/14/17 12/14/17 Insulin] lisinopril 5 mg PO DAILY 12/14/17 12/14/17 rosuvastatin 20 mg PO DAILY 12/14/17 12/14/17 Allergies Allergy/AdvReac Type Severity Reaction Status Date / Time morphine Allergy Intermediate VOMITING Verified 12/14/17 13:22 Review of Systems ROS: all other systems reviewed are negative [facility] History History Provided By: Patient (Diabetes, CABG) Social History Social History Substance History: No History of Abuse Smoking Status: Never smoker How Often Do You Have a Drink Containing Alcohol: Never Recent Travel in [facility] within the Last 8 Weeks: No Recent Out of Country Travel within the Last 8 Weeks: No Exam Narrative Exam Narrative: GENERAL: 77-year-old female with intermittent active nonbloody emesis SKIN: Focused skin assessment warm/dry. HEAD: Atraumatic. Normocephalic. EYES: Pupils equal and round. No scleral icterus. No injection or drainage. ENT: No nasal bleeding or discharge. Mucous membranes pink and moist. NECK: Trachea midline. CARDIOVASCULAR: Regular rate and rhythm. RESPIRATORY: No accessory muscle use. Clear to auscultation. Breath sounds equal bilaterally. GASTROINTESTINAL: Abdomen soft, mild diffusely tender, nondistended. Hepatic and splenic margins not palpable. MUSCULOSKELETAL: No obvious deformities. No clubbing. No cyanosis. No significant edema. NEUROLOGICAL: Awake and alert. Motor grossly within normal limits. Normal speech. PSYCHIATRIC: Appropriate mood and affect; insight and judgment normal. Course Reevaluation(s) Reevaluation #1: Patient has elevated lactate without source. CT shows perinephric stranding which raises concern for possible pyelonephritis. Urinalysis pending. We will add on blood cultures and repeat IV fluid bolus will dosing with Zosyn patient has elevated glucose but is not in DKA. She has tachycardia and leukocytosis with elevated lactate which are concerning for sepsis. Reevaluation #2: Patient has elevated troponin. Given aspirin. Currently without active chest pain. She states Dr. Mora is her industrial staff nurse and she had a stress test before her surgery on her leg that was normal this year in July. Urinalysis shows blood and will send for further culture. Will admit for further care. patient updated and agrees to plan Consultations Consultation #1: dr comer agrees to admit Initial Documented Vital Signs Temperature 97.6 F 12/14/17 13:22 Pulse Rate 97 H 12/14/17 13:22 Respiratory Rate 18 12/14/17 13:22 Blood Pressure 184/86 H 12/14/17 13:22 Pulse Oximetry 96 12/14/17 13:22 Last Documented Vital Signs Temperature 97.6 F 12/14/17 13:22 Pulse Rate 96 H 12/14/17 16:19 Respiratory Rate 18 12/14/17 16:19 Blood Pressure 138/68 12/14/17 16:19 Pulse Oximetry 98 12/14/17 16:19 Medical Decision Making [facility] Narrative Medical decision making narrative: Will check blood work, urinalysis, CT scan abdominal pelvis and dose with IV fluids and Zofran and reevaluate Medical Screen Exam Complete: Yes Emergency Medical Condition: Yes Differential Diagnosis Differential Diagnosis: DKA, gastritis, pancreatitis, diverticulitis, renal failure, electrolyte abnormality Lab Data Lab results reviewed: Yes I reviewed the patient's lab results. Result diagrams: 12/14/17 13:50 12/14/17 13:50 Lab Results 12/14/17 12/14/17 12/14/17 Range/Units 13:33 13:50 13:50 CBC w Diff Auto diff final WBC 14.0 H (4.0-11.0) th/mm3 RBC 4.45 (4.00-5.30) mil/mm3 Hgb 13.4 (11.6-15.3) gm/dL Hct 40.3 (35.0-46.0) % MCV 90.6 (80.0-100.0) fL MCH 30.2 (27.0-34.0) pg MCHC 33.3 (32.0-36.0) % RDW 11.9 (11.6-17.2) % Plt Count 320 (150-450) th/mm3 MPV 8.6 (7.0-11.0) fL Neut % (Auto) 90.3 H (16.0-70.0) % Lymph % (Auto) 6.1 L (9.0-44.0) % Camp % (Auto) 2.2 (0.0-8.0) % Eos % (Auto) 0.1 (0.0-4.0) % Baso % (Auto) 1.3 (0.0-2.0) % Neut # (Auto) 12.6 H (1.8-7.7) th/mm3 Lymph # (Auto) 0.9 L (1.0-4.8) th/mm3 Camp # (Auto) 0.3 (0.0-0.9) th/mm3 Eos # (Auto) 0.0 (0.0-0.4) th/mm3 Baso # (Auto) 0.2 (0.0-0.2) th/mm3 WBC Differential . Differential Comment . Sodium 133 L (136-145) meq/L Potassium 4.5 (3.5-5.1) meq/L Chloride 95 L (98-107) meq/L Carbon Dioxide 25.8 (21.0-32.0) meq/L Anion Gap 12 (5-15) meq/L BUN 38 H (7-18) mg/dL Creatinine 1.80 H (0.50-1.00) mg/dL Estimated GFR 27 L (>89) mL/min POC Glucose 453 H* (68-110) mg/dl Random Glucose 445 H (74-106) mg/dL Lactic Acid (0.4-2.0) mmol/L Calcium 9.1 (8.5-10.1) mg/dL Total Bilirubin 0.6 (0.2-1.0) mg/dL AST 19 (15-37) U/L ALT 16 (10-53) U/L Alkaline Phosphatase 142 H (45-117) U/L Total Creatine Kinase (26-192) U/L Troponin I (0.02-0.05) ng/mL Total Protein 8.2 (6.4-8.2) g/dL Albumin 3.2 L (3.4-5.0) g/dL Lipase 68 L (73-393) U/L Beta-Hydroxybutyric Acd 1.58 H (0.00-0.39) mmol/L Ur Collection Type Urine Color (Yellw/Straw) Urine Clarity (Clear) Urine pH (5.0-8.5) Ur Specific [place] (1.002-1.035) Urine Protein (Neg-Trace) mg/dL Urine Glucose (UA) (Negative) mg/dL Urine Ketones (Negative) mg/dL Urine Occult Blood (Negative) Urine Nitrate (Negative) Urine Bilirubin (Negative) Urine Urobilinogen (Less than 2) mg/dL Ur Leukocyte Esterase (Negative) Urine RBC (0-3) /hpf Urine WBC (0-5) /hpf Ur Squamous Epith Cells (0-5) /hpf Urine Bacteria (None) /hpf Micro UA Comment Ur Microscopic Review Urine Culture Comments 12/14/17 12/14/17 12/14/17 Range/Units 13:50 13:50 14:28 CBC w Diff WBC (4.0-11.0) th/mm3 RBC (4.00-5.30) mil/mm3 Hgb (11.6-15.3) gm/dL Hct (35.0-46.0) % MCV (80.0-100.0) fL MCH (27.0-34.0) pg MCHC (32.0-36.0) % RDW (11.6-17.2) % Plt Count (150-450) th/mm3 MPV (7.0-11.0) fL Neut % (Auto) (16.0-70.0) % Lymph % (Auto) (9.0-44.0) % Camp % (Auto) (0.0-8.0) % Eos % (Auto) (0.0-4.0) % Baso % (Auto) (0.0-2.0) % Neut # (Auto) (1.8-7.7) th/mm3 Lymph # (Auto) (1.0-4.8) th/mm3 Camp # (Auto) (0.0-0.9) th/mm3 Eos # (Auto) (0.0-0.4) th/mm3 Baso # (Auto) (0.0-0.2) th/mm3 WBC Differential Differential Comment Sodium (136-145) meq/L Potassium (3.5-5.1) meq/L Chloride (98-107) meq/L Carbon Dioxide (21.0-32.0) meq/L Anion Gap (5-15) meq/L BUN (7-18) mg/dL Creatinine (0.50-1.00) mg/dL Estimated GFR (>89) mL/min POC Glucose 393 H (68-110) mg/dl Random Glucose (74-106) mg/dL Lactic Acid 2.6 H (0.4-2.0) mmol/L Calcium (8.5-10.1) mg/dL Total Bilirubin (0.2-1.0) mg/dL AST (15-37) U/L ALT (10-53) U/L Alkaline Phosphatase (45-117) U/L Total Creatine Kinase 53 (26-192) U/L Troponin I 0.54 H (0.02-0.05) ng/mL Total Protein (6.4-8.2) g/dL Albumin (3.4-5.0) g/dL Lipase (73-393) U/L Beta-Hydroxybutyric Acd (0.00-0.39) mmol/L Ur Collection Type Urine Color (Yellw/Straw) Urine Clarity (Clear) Urine pH (5.0-8.5) Ur Specific [place] (1.002-1.035) Urine Protein (Neg-Trace) mg/dL Urine Glucose (UA) (Negative) mg/dL Urine Ketones (Negative) mg/dL Urine Occult Blood (Negative) Urine Nitrate (Negative) Urine Bilirubin (Negative) Urine Urobilinogen (Less than 2) mg/dL Ur Leukocyte Esterase (Negative) Urine RBC (0-3) /hpf Urine WBC (0-5) /hpf Ur Squamous Epith Cells (0-5) /hpf Urine Bacteria (None) /hpf Micro UA Comment Ur Microscopic Review Urine Culture Comments 12/14/17 Range/Units 15:30 CBC w Diff WBC (4.0-11.0) th/mm3 RBC (4.00-5.30) mil/mm3 Hgb (11.6-15.3) gm/dL Hct (35.0-46.0) % MCV (80.0-100.0) fL MCH (27.0-34.0) pg MCHC (32.0-36.0) % RDW (11.6-17.2) % Plt Count (150-450) th/mm3 MPV (7.0-11.0) fL Neut % (Auto) (16.0-70.0) % Lymph % (Auto) (9.0-44.0) % Camp % (Auto) (0.0-8.0) % Eos % (Auto) (0.0-4.0) % Baso % (Auto) (0.0-2.0) % Neut # (Auto) (1.8-7.7) th/mm3 Lymph # (Auto) (1.0-4.8) th/mm3 Camp # (Auto) (0.0-0.9) th/mm3 Eos # (Auto) (0.0-0.4) th/mm3 Baso # (Auto) (0.0-0.2) th/mm3 WBC Differential Differential Comment Sodium (136-145) meq/L Potassium (3.5-5.1) meq/L Chloride (98-107) meq/L Carbon Dioxide (21.0-32.0) meq/L Anion Gap (5-15) meq/L BUN (7-18) mg/dL Creatinine (0.50-1.00) mg/dL Estimated GFR (>89) mL/min POC Glucose (68-110) mg/dl Random Glucose (74-106) mg/dL Lactic Acid (0.4-2.0) mmol/L Calcium (8.5-10.1) mg/dL Total Bilirubin (0.2-1.0) mg/dL AST (15-37) U/L ALT (10-53) U/L Alkaline Phosphatase (45-117) U/L Total Creatine Kinase (26-192) U/L Troponin I (0.02-0.05) ng/mL Total Protein (6.4-8.2) g/dL Albumin (3.4-5.0) g/dL Lipase (73-393) U/L Beta-Hydroxybutyric Acd (0.00-0.39) mmol/L Ur Collection Type Clean catch Urine Color Yellow (Yellw/Straw) Urine Clarity Clear (Clear) Urine pH 6.0 (5.0-8.5) Ur Specific [place] 1.020 (1.002-1.035) Urine Protein 100 H (Neg-Trace) mg/dL Urine Glucose (UA) 1000 or greater H (Negative) mg/dL Urine Ketones 15 H (Negative) mg/dL Urine Occult Blood Large H (Negative) Urine Nitrate Negative (Negative) Urine Bilirubin Negative (Negative) Urine Urobilinogen 0.2 (Less than 2) mg/dL Ur Leukocyte Esterase Negative (Negative) Urine RBC 51-189 H (0-3) /hpf Urine WBC 0-5 (0-5) /hpf Ur Squamous Epith Cells 0-5 (0-5) /hpf Urine Bacteria Rare H (None) /hpf Micro UA Comment Culture not ind Ur Microscopic Review Microscopic reviewed Urine Culture Comments Culture not ind Imaging Data Attestation: I personally reviewed and interpreted this imaging study as follows : Radiologist's impression: Abdomen/Pelvis CT 12/14/17 15:01 CONCLUSION: 1. Large stool burden identified within the colon. No abnormal wall thickening and no evidence of bowel obstruction. 2. There is mild left perinephric fluid without visible obstructing lesion or other abnormality. Etiology of this is unknown. 3. Layering sludge identified within an otherwise unremarkable bladder. 4. Stable stone identified within the right renal pelvis. No evidence of hydronephrosis. Discharge Plan Discharge Disposition Patient Disposition: 30 Still Patient Discharge Condition Condition: Stable Discharge Details Diagnosis: Sepsis, Elevated troponin Physicians Team ED Provider: Ivy Wilkerson Primary Care Provider: James Drew Rxs /Orders / Referrals /Forms Prescriptions: No Action aspirin [Aspirin Low Dose] 81 mg Tablet,Delayed Release (Dr/Ec) 81 mg PO DAILY RF: 0 carvedilol 3.125 mg Tablet 3.125 mg PO BID RF: 0 lisinopril 5 mg Tablet 5 mg PO DAILY RF: 0 insulin lispro [Humalog U-100 Insulin] 100 unit/mL Solution 6 unit SUB-Q PCHS RF: 0 insulin lispro [Humalog U-100 Insulin] 100 unit/mL Solution 21 unit SUB-Q QAM RF: 0 calcitriol 0.25 mcg Capsule 0.25 mcg PO 3XW RF: 0 rosuvastatin 20 mg Tablet 20 mg PO DAILY RF: 0 Status ED Status: Admitted Patient
[2017-12-14 13:59] LABS: Baso # (Auto) 0.2 th/mm3 (0.0-0.2); Baso % (Auto) 1.3 % (0.0-2.0); Eos % (Auto) 0.1 % (0.0-4.0); Hematocrit 40.3 % (35.0-46.0); Hemoglobin 13.4 gm/dL (11.6-15.3); Lymph # (Auto) 0.9 th/mm3 (1.0-4.8); Lymph % (Auto) 6.1 % (9.0-44.0); Mean Corpuscular HGB Conc 33.3 % (32.0-36.0); Mean Corpuscular Hemoglobin 30.2 pg (27.0-34.0); Mean Corpuscular Volume 90.6 fL (80.0-100.0); Mean Platelet Volume 8.6 fL (7.0-11.0); Mono # (Auto) 0.3 th/mm3 (0.0-0.9); Mono % (Auto) 2.2 % (0.0-8.0); Neut # (Auto) 12.6 th/mm3 (1.8-7.7); Neut % (Auto) 90.3 % (16.0-70.0); Platelet Count 320 th/mm3 (150-450); Red Blood Count 4.45 mil/mm3 (4.00-5.30); Red Cell Distribution Width 11.9 % (11.6-17.2)
[2017-12-14] MEDS ORDERED: Sodium Chlor 0.9% Inj 500 ML IV.SIG SCH ×2 (14:00→15:00)
[2017-12-14 14:15] LABS: Chloride 95 meq/L (98-107); Potassium 4.5 meq/L (3.5-5.1); Sodium 133 meq/L (136-145)
[2017-12-14 14:18] LABS: Albumin 3.2 g/dL (3.4-5.0); Anion Gap 12 meq/L (5-15); Calcium 9.1 mg/dL (8.5-10.1); Carbon Dioxide 25.8 meq/L (21.0-32.0); Lipase 68 U/L (73-393)
[2017-12-14 14:26] LABS: Troponin I 0.54 ng/mL (0.02-0.05)
[2017-12-14 14:37] LABS: Alanine Aminotransferase 16 U/L (10-53); Alkaline Phosphatase 142 U/L (45-117); Aspartate Aminotransferase 19 U/L (15-37); Beta Hydroxybutyric Acid 1.58 mmol/L (0.00-0.39); Blood Urea Nitrogen 38 mg/dL (7-18); Glomerular Filtration Rate 27 mL/min (>89); Glucose,Random 445 mg/dL (74-106); Total Protein 8.2 g/dL (6.4-8.2)
--- NOTE | 2017-12-14 15:44 | CT ---
EXAM DATE: 12/14/2017 3:33 PM EDT AGE/SEX: 77 years / Female INDICATIONS: Abdomen pain with nausea and vomiting CLINICAL DATA: This is the patient's initial encounter. Patient reports that signs and symptoms have been present for 1 day and indicates a pain score of 4/10. MEDICAL/SURGICAL HISTORY: None. . Open heart surgery 2013, Right hip surgery RADIATION DOSE: 7.86 CTDI (mGy) COMPARISON: [facility], CT ABDOMEN & PELVIS W CONTRAST, 01/11/2017. POI, XR HIP AP AND LAT, RIGHT, 02/07. . TECHNIQUE: Multiple contiguous axial images were obtained through the abdomen. Images were obtained using multiple row detector helical technique. Using automated exposure control and adjustment of the mA and/or kV according to patient size, radiation dose was kept as low as reasonably achievable to o btain optimal diagnostic quality images. DICOM format image data is available electronically for rev iew and comparison. FINDINGS: No IV contrast is appreciated. Lower Lungs: There are small bilateral pleural effusions present, decreased in size from prior exam. The lungs are otherwise grossly clear. Liver: The liver has a homogeneous density without space-occupying lesion. There is no dilation of th e biliary tree. Layering sludge is identified within the gallbladder. Spleen: Homogeneous density without enlargement. Pancreas: Unremarkable without mass or calcification. Kidneys: There is a stable 1.4 cm stone identified within the right extrarenal pelvis. No abnormal d ilation of the calyces. The renal parenchyma appears normal in thickness and attenuation. There are v ascular calcifications identified bilaterally. No evidence of concerning renal mass. There is a small amount of left perinephric fluid. Etiology unknown. Adrenal Glands: Unremarkable. Aorta: Extensive atherosclerosis. No evidence of aneurysm. Bowel/Mesentery: There is a large amount of formed stool identified throughout the colon with relati ve sparing of the descending and sigmoid colon. No abnormal wall thickening. Large stool ball or cyst is identified within the rectum. Small bowel is nonopacified but grossly unremarkable. Abdominal Wall: Intact. Retroperitoneum: No evidence of adenopathy in the retrocrural, para-aortic, or deep pelvic regions. Bladder: Contours are smooth. Reproductive Organs: Surgically absent. Inguinal: The inguinal region is unremarkable without evidence of adenopathy. Bony Structures: Osteopenia and degenerative change. No evidence of insufficiency fracture. Total ri ght hip for ceases present. CONCLUSION: 1. Large stool burden identified within the colon. No abnormal wall thickening and no evidence of robbin wel obstruction. 2. There is mild left perinephric fluid without visible obstructing lesion or other abnormality. Ariela ology of this is unknown. 3. Layering sludge identified within an otherwise unremarkable bladder. 4. Stable stone identified within the right renal pelvis. No evidence of hydronephrosis. Electronically signed by: Barb Olivares MD 12/14/2017 3:43 PM EDT
[2017-12-14] MEDS ORDERED: Piperacil/Tazo 3.375 GM Premix 50 ML IV.SIG ONE (15:47)
[2017-12-14 15:51] LABS: Bilirubin,Urine Negative (Negative); Clarity,Urine Clear (Clear); Color,Urine Yellow (Yellw/Straw); Leukocyte Esterase,Urine Negative (Negative); Nitrite,Urine Negative (Negative); Urobilinogen,Urine 0.2 mg/dL (Less than 2)
[2017-12-14 15:59] LABS: Bacteria,Urine Rare /hpf; RBC,Urine 51-189 /hpf (0-3); Squamous Epithelial Cell,Urine 0-5 /hpf (0-5); WBC,Urine 0-5 /hpf (0-5)
[2017-12-14] MEDS ORDERED: Sod Chloride 0.9% Inj 1,000 ML IV.SIG SCH (16:00)
[2017-12-14] MEDS ORDERED: Acetaminophen 325 MG Tablet PO PRN (16:28)
[2017-12-14] MEDS ORDERED: Heparin - SQ 10,000 UNITS/ML Vial SQ SCH (16:30)
[2017-12-14] MEDS ORDERED: Dextrose 50% in Water 50 ML Vial IV.PUSH PRN (16:31)
[2017-12-14] MEDS: Insulin NovoLOG Aspart Correctional Sugar Inj SQ SCH ×2 (17:35→20:42)
--- NOTE | 2017-12-14 17:53 | P.HPIM ---
History of Present Illness Primary Care Physician: James Drew MD Chief Complaint: N/V/D History of Present Illness: The patient is a 77-year-old female with a past medical history of CAD and diabetes who is presenting to the hospital with nausea, vomiting and diarrhea. The patient says she was feeling well until she woke up this morning at 6 AM. She went to go get a drink of water and immediately threw it up. Since that time she has been throwing up everything she tried to ingest. She also came down with diarrhea starting this morning as well. She said her blood sugar has been poorly controlled since this morning. She did not take any insulin because she has not been eating anything. She states that her blood pressure generally runs lower than it is right now. She says she generally does not have much of an appetite. She complains of chronic right knee swelling from a complication of right hip surgery she had. She denies any constipation or difficulty with urination. She denies any sick contacts, although she says that 1 of her neighbors is currently in the hospital. Inpatient Certification: I certify that the inpatient services were ordered in accordance with Medicare regulations governing the order. This includes certification that hospital inpatient services are reasonable and necessary and in the case of services not specified as inpatient-only under 42 CFR 419.22(n), that they are appropriately provided as inpatient services in accordance to with the 2-midnight benchmark under 43 CFR 412.3(e) Estimated Total Length of Stay (Days): 3 Plans for Post Hospital Care: Not yet determined Review of Systems All other systems reviewed negative except as stated in [facility] - History History Provided By: Patient (Diabetes, CABG) - Medical History Medical History: Medical History (Last Updated 12/14/17 @ 17:41 by Rajeev Brenner DO) CAD (coronary artery disease) CKD (chronic kidney disease) stage 3, GFR 30-59 ml/min Diabetes HLD (hyperlipidemia) HTN (hypertension) - Surgical History Surgical History: Surgical History (Last Updated 12/14/17 @ 17:40 by Rajeev Brenner DO) History of hip surgery S/P CABG x 4 - Family History Family History: Family History (Last Updated 12/14/17 @ 17:40 by Rajeev Brenner DO) Other Patient denies significant medical history - Social History I have reviewed the patient's Social History: Yes - Tobacco History Smoking Status: Former smoker - Alcohol History How Often Do You Have a Drink Containing Alcohol: Never - Substance Use History Substance History: No History of Abuse - Travel History Recent Travel in the [place] Within the Last 8 Weeks: No Recent Travel Out of the Country Within the Last 8 Weeks: No - Immunization History Tetanus Immunization: Unsure Hx Influenza Vaccine This Season: Yes Medications and Allergies Active Medications: Active Medications Acetaminophen (Tylenol) 650 mg PO Q4H PRN PRN Reason: Temp > 100.4 Aspirin (Ecotrin) 81 mg PO DAILY [facility] Atorvastatin Calcium (Lipitor) 40 mg PO DAILY [facility] Calcitriol (Rocaltrol) 0.25 mcg PO MoWeFr@0900 [facility] Carvedilol (Coreg) 3.125 mg PO BID [facility] Dextrose (D50w Vial) 50 ml IV.PUSH UNSCH PRN PRN Reason: PER HYPOGLYCEMIA PROTOCOL Glucagon (Glucagon Inj) 1 mg OTHER PRN PRN PRN Reason: for Hypoglycemia Protocol Heparin Sodium (Porcine) (Heparin Inj) 5,000 units SQ Q8HR [facility] Last Admin: 12/14/17 17:24 Dose: 5,000 units Sodium Chloride (Ns Inj) 500 mls @ 0 mls/hr IV.SIG BOLUS YOLI Last Infusion: 12/14/17 14:21 Dose: Infused Sodium Chloride (Ns Inj) 500 mls @ 0 mls/hr IV.SIG BOLUS YOLI Last Admin: 12/14/17 17:23 Dose: 500 mls/hr Sodium Chloride (Ns Inj) 1,000 mls @ 0 mls/hr IV.SIG BOLUS YOLI Last Infusion: 12/14/17 17:21 Dose: Infused Sodium Chloride (Ns Inj) 1,000 mls @ 100 mls/hr IV.CONT .Q10H YOLI Stop: 12/15/17 22:29 Insulin Aspart (Novolog Insulin Correctional Sugar Inj) 0 unit SQ ACHS YOLI; Protocol Last Admin: 12/14/17 17:35 Dose: Not Given Metoclopramide HCl (Reglan Inj) 5 mg IV.PUSH Q8H PRN; Protocol PRN Reason: n/v Senna/Docusate Sodium (Lanny-Colace) 1 tab PO BID [facility] Sodium Chloride (Ns Flush) 2 ml IV.FLUSH PRN PRN PRN Reason: FLUSH AFTER USING IV ACCESS Allergies Allergy/AdvReac Type Severity Reaction Status Date / Time morphine Allergy Intermediate VOMITING Verified 12/14/17 13:22 Home Medications Medication Instructions Recorded Confirmed Type aspirin [Aspirin Low Dose] 81 mg PO DAILY 12/14/17 12/14/17 History calcitriol 0.25 mcg PO 3XW 12/14/17 12/14/17 History carvedilol 3.125 mg PO BID 12/14/17 12/14/17 History insulin lispro [Humalog U-100 6 unit SUB-Q PCHS 12/14/17 12/14/17 History Insulin] insulin lispro [Humalog U-100 21 unit SUB-Q QAM 12/14/17 12/14/17 History Insulin] lisinopril 5 mg PO DAILY 12/14/17 12/14/17 History rosuvastatin 20 mg PO DAILY 12/14/17 12/14/17 History Exam Vital signs: Vital Signs 12/14/17 13:22 12/14/17 14:00 12/14/17 14:21 Temperature 97.6 F Pulse Rate 97 H 96 H Respiratory Rate 18 20 Blood Pressure 184/86 H 153/85 H Pulse Oximetry 96 95 95 12/14/17 15:01 12/14/17 16:19 Temperature Pulse Rate 91 H 96 H Respiratory Rate 18 18 Blood Pressure 138/77 138/68 Pulse Oximetry 98 98 Intake & Output 12/13/17 12/14/17 12/14/17 18:59 06:59 18:59 Intake Total 1500 / 1500 Balance 1500 / 1500 Weight 61.2 kg Intake: IV 1500 / 1500 NS Inj 1,000 ML @ Wide Open IV. 1000 / 1000 SIG BOLUS YOLI Rx#:[id number] NS Inj 500 ML @ Wide Open IV. 500 / 500 SIG BOLUS YOLI Rx#:[id number] Narrative: GENERAL: No distress. SKIN: Focused skin assessment warm/dry. HEAD: Atraumatic. Normocephalic. EYES: Pupils equal and round. No scleral icterus. No injection or drainage. ENT: No nasal bleeding or discharge. Mucous membranes pink and moist. NECK: Trachea midline. CARDIOVASCULAR: Regular rate and rhythm. RESPIRATORY: No accessory muscle use. Clear to auscultation. Breath sounds equal bilaterally. GASTROINTESTINAL: Abdomen soft, mild diffusely tender, nondistended. Hepatic and splenic margins not palpable. MUSCULOSKELETAL: No obvious deformities. No clubbing. No cyanosis. No significant edema. NEUROLOGICAL: Awake and alert. Motor grossly within normal limits. Normal speech. PSYCHIATRIC: Appropriate mood and affect; insight and judgment normal. Results - Labs CBC & Chem 7: 12/14/17 13:50 12/14/17 13:50 Labs: Short CBC 12/14/17 Range/Units 13:50 WBC 14.0 H (4.0-11.0) th/mm3 Hgb 13.4 (11.6-15.3) gm/dL Hct 40.3 (35.0-46.0) % Plt Count 320 (150-450) th/mm3 BMP 12/14/17 13:50 Sodium 133 L Potassium 4.5 Chloride 95 L Carbon Dioxide 25.8 BUN 38 H Creatinine 1.80 H Calcium 9.1 Cardiac Enzymes 12/14/17 Range/Units 13:50 Total Creatine Kinase 53 (26-192) U/L Troponin I 0.54 H (0.02-0.05) ng/mL Liver Function 12/14/17 Range/Units 13:50 Total Bilirubin 0.6 (0.2-1.0) mg/dL AST 19 (15-37) U/L ALT 16 (10-53) U/L Alkaline Phosphatase 142 H (45-117) U/L Albumin 3.2 L (3.4-5.0) g/dL Urine 12/14/17 Range/Units 15:30 Urine Color Yellow (Yellw/Straw) Urine Clarity Clear (Clear) Urine pH 6.0 (5.0-8.5) Ur Specific [place] 1.020 (1.002-1.035) Urine Protein 100 H (Neg-Trace) mg/dL Urine Glucose (UA) 1000 or greater H (Negative) mg/dL - Imaging Impressions Abdomen/Pelvis CT 12/14/17 15:01 CONCLUSION: 1. Large stool burden identified within the colon. No abnormal wall thickening and no evidence of bowel obstruction. 2. There is mild left perinephric fluid without visible obstructing lesion or other abnormality. Etiology of this is unknown. 3. Layering sludge identified within an otherwise unremarkable bladder. 4. Stable stone identified within the right renal pelvis. No evidence of hydronephrosis. Caprini VTE Risk Assessment Caprini VTE Risk Assessment: Moderate/High Risk (score >= 2) Caprini Risk Assessment Model: Point Value = 1 Point Value = 2 Point Value = 3 Point Value = 5 Age 41-60 Minor surgery BMI > 25 kg/m2 Swollen legs Varicose veins or History of unexplained or recurrent spontaneous Oral contraceptives or hormone replacement Sepsis (< 1 month) Serious lung disease, including pneumonia (< 1 month) Abnormal pulmonary function Acute myocardial infarction Congestive heart failure (< 1 month) History of inflammatory bowel disease Medical patient at bed rest Age 61-74 Arthroscopic surgery Major open surgery (> 45 min) Laparoscopic surgery (> 45 min) Malignancy Confined to bed (> 72 hours) Immobilizing plaster cast Central venous access Age >= 75 History of VTE Family history of VTE Factor V Leiden Prothrombin [id number] Lupus anticoagulant Anticardiolipin antibodies Elevated serum homocysteine Heparin-induced thrombocytopenia Other congenital or acquired thrombophilia Stroke (< 1 month) Elective arthroplasty Hip, pelvis, or leg fracture Acute spinal cord injury (< 1 month) Prophylaxis Regimen: Total Risk Factor Score Risk Level Prophylaxis Regimen 0-1 Low Early ambulation 2 Moderate Order ONE of the following: *Sequential Compression Device (SCD) *Heparin 5000 units SQ BID 3-4 Higher Order ONE of the following medications: *Heparin 5000 units SQ TID *Enoxaparin/Lovenox 40 mg SQ daily (WT < 150 kg, CrCl > 30 mL/min) *Enoxaparin/Lovenox 30 mg SQ daily (WT < 150 kg, CrCl > 10-29 mL/min) *Enoxaparin/Lovenox 30 mg SQ BID (WT < 150 kg, CrCl > 30 mL/min) AND/OR *Sequential Compression Device (SCD) 5 or more Highest Order ONE of the following medications: *Heparin 5000 units SQ TID (Preferred with Epidurals) *Enoxaparin/Lovenox 40 mg SQ daily (WT < 150 kg, CrCl > 30 mL/min) *Enoxaparin/Lovenox 30 mg SQ daily (WT < 150 kg, CrCl > 10-29 mL/min) *Enoxaparin/Lovenox 30 mg SQ BID (WT < 150 kg, CrCl > 30 mL/min) AND *Sequential Compression Device (SCD) Assessment and Plan - Plan N/V/D Possibly s/t gastroenteritis or gastroparesis. CT abdomen without significant pathology. Symptoms currently improved. -antiemetics as needed. -IVFs. -clear liquid diet for now. Elevated troponin May be s/t demand ischemia from above. Pt does have a history of CAD s/p CABG. She did report a negative stress test earlier this year. She denies any chest pain or shortness of breath. EKG without acute ischemia. -telemetry. -trend trops and EKG. -consult cardiology if trops increase or develops chest pain. DM The pt did not take insulin s/t GI distress and her glucose has been quite elevated. -Regular insulin 10 units x 1. -insulin sliding scale. -resume home regimen when tolerating a diet. CKD Stage 3. Creatinine not far from baseline. -IVFs. -follow BMP and avoid nephrotoxins. Leukocytosis Likely s/t gastroenteritis or reactive. UA not indicative of infection. -check a CXR. PPx: Heparin
--- NOTE | 2017-12-14 18:05 | XR ---
EXAM DATE: 12/14/2017 5:58 PM EDT AGE/SEX: 77 years / Female INDICATIONS: Pneumonia, abdomen pain, nausea and vomiting, sepsis CLINICAL DATA: This is the patient's initial encounter. Patient reports that signs and symptoms have been present for 1 day and indicates a pain score of 0/10. MEDICAL/SURGICAL HISTORY: None. CABG. COMPARISON: [facility], CHEST SINGLE AP, 11/14/2016. . FINDINGS: Heart size is normal with multiple intact median sternotomy wires and postsurgical changes of prior C ABG. Pulmonary vasculature appears normal in caliber. The lungs demonstrate stable appearance of mild interstitial prominence without evidence of airspace consolidation or pneumothorax. No evidence of p leural effusion. Osseous structures are intact. CONCLUSION: Stable lung appearance which may reflect chronic edema or fibrosis. No new lung abnormality seen to s uggest pneumonia. Electronically signed by: Barb Olivares MD 12/14/2017 6:04 PM EDT
[2017-12-14] MEDS: Sod Chloride 0.9% Inj 1,000 ML IV.CONT SCH (18:33)
[2017-12-14] MEDS: Senna/Docusate Sodium 8.6/50 MG Tablet PO SCH (20:41)
[2017-12-14] MEDS ORDERED: Heparin Drip 25,000 UNIT/250 ML BAG IV.CONT PRN (21:06)
[2017-12-14 22:04] LABS: Activated Partial Thrombo Time 28.5 sec (24.3-30.1); Prothrombin Time 10.1 sec (9.8-11.6)
[2017-12-15] MEDS: Sod Chloride 0.9% Inj 1,000 ML IV.CONT SCH ×3 (04:47→15:49)
[2017-12-15 06:14] LABS: Baso % (Auto) 0.3 % (0.0-2.0); Eos % (Auto) 0.4 % (0.0-4.0); Hematocrit 29.9 % (35.0-46.0); Hemoglobin 10.4 gm/dL (11.6-15.3); Lymph # (Auto) 1.1 th/mm3 (1.0-4.8); Lymph % (Auto) 9.4 % (9.0-44.0); Mean Corpuscular HGB Conc 34.8 % (32.0-36.0); Mean Corpuscular Hemoglobin 31.3 pg (27.0-34.0); Mono # (Auto) 0.9 th/mm3 (0.0-0.9); Mono % (Auto) 7.6 % (0.0-8.0); Neut # (Auto) 9.5 th/mm3 (1.8-7.7); Neut % (Auto) 82.3 % (16.0-70.0); Platelet Count 241 th/mm3 (150-450); Red Blood Count 3.32 mil/mm3 (4.00-5.30); Red Cell Distribution Width 13.5 % (11.6-17.2); White Blood Count 11.5 th/mm3 (4.0-11.0)
[2017-12-15 07:01] LABS: Alanine Aminotransferase 12 U/L (10-53); Albumin 2.3 g/dL (3.4-5.0); Alkaline Phosphatase 92 U/L (45-117); Anion Gap 8 meq/L (5-15); Aspartate Aminotransferase 17 U/L (15-37); Blood Urea Nitrogen 34 mg/dL (7-18); Calcium 7.8 mg/dL (8.5-10.1); Carbon Dioxide 25.7 meq/L (21.0-32.0); Chloride 105 meq/L (98-107); Glomerular Filtration Rate 37 mL/min (>89); Glucose,Random 200 mg/dL (74-106); Sodium 139 meq/L (136-145); Total Protein 5.8 g/dL (6.4-8.2)
[2017-12-15] MEDS: Insulin NovoLOG Aspart Correctional Sugar Inj SQ SCH ×4 (08:50→20:15)
[2017-12-15] MEDS: Senna/Docusate Sodium 8.6/50 MG Tablet PO SCH ×2 (08:51→20:08)
--- NOTE | 2017-12-15 12:37 | ECG ---
Date Performed: 12/15/2017 Time Performed: 02:07:14 PTAGE: 77 years EKG: Sinus rhythm ST DEVIATION AND MODERATE T-WAVE ABNORMALITY, CONSIDER ANTEROLATERAL ISCHEMIA ABNORMAL ECG PREVIOUS TRACING : 12/14/2017 19.36 Since the previous tracing, no significant change noted DOCTOR: Brown Jacques Interpretating Date/Time 12/15/2017 12:35:00
--- NOTE | 2017-12-15 12:38 | ECG ---
Date Performed: 12/14/2017 Time Performed: 19:36:44 PTAGE: 77 years EKG: Sinus rhythm MINIMAL ST DEPRESSION BORDERLINE ECG PREVIOUS TRACING : 12/14/2017 13.48 Since the previous tracing, no significant change noted DOCTOR: Brown Jacques Interpretating Date/Time 12/15/2017 12:35:22
--- NOTE | 2017-12-15 12:40 | ECG ---
Date Performed: 12/14/2017 Time Performed: 13:48:52 PTAGE: 77 years EKG: Sinus rhythm NONSPECIFIC ST & T-WAVE ABNORMALITY ABNORMAL RHYTHM ECG Since PREVIOUS TRACING , no significant change noted PREVIOUS TRACIN11/14/2016 18.13 DOCTOR: Brown Jacques Interpretating Date/Time 12/15/2017 12:36:09
--- NOTE | 2017-12-15 13:45 | P.PNIM ---
Subjective Interval history: The patient was resting comfortably in bed. She said that her nausea and vomiting and diarrhea have resolved. She would like to try a regular diet. She said she talked with her heart doctor. She was told she was going to the [facility]. Discussed with nursing. Physical Exam Vital signs: Vital Signs 12/14/17 14:00 12/14/17 14:21 12/14/17 15:01 Temperature Pulse Rate 96 H 91 H Respiratory Rate 20 18 Blood Pressure 153/85 H 138/77 Pulse Oximetry 95 95 98 12/14/17 16:19 12/14/17 17:49 12/14/17 18:42 Temperature 97.7 F Pulse Rate 96 H 95 H 94 H Respiratory Rate 18 18 18 Blood Pressure 138/68 135/78 115/77 Pulse Oximetry 98 100 12/14/17 19:00 12/14/17 20:00 12/15/17 00:00 Temperature 97.9 F 98.0 F Pulse Rate 92 H 91 H Respiratory Rate 21 19 Blood Pressure 118/47 L 99/41 L Pulse Oximetry 95 12/15/17 04:00 Temperature 98.4 F Pulse Rate 92 H Respiratory Rate 19 Blood Pressure 130/45 L Pulse Oximetry 95 Intake & Output 12/14/17 12/15/17 12/15/17 18:59 06:59 18:59 Intake Total 2049 1000 / 1000 Balance 2049 1000 / 1000 Weight 62.7 kg 62.5 kg Intake: IV 2049 1000 / 1000 NS Inj 1,000 ML @ 100 mls/hr IV 1000 / 1000 .CONT .Q10H YOLI Rx#:[id number] Zosyn 3.375 GM Premix 50 ML @ 50 / 50 100 mls/hr IV.SIG ONCE ONE Rx#: [id number] NS Inj 1,000 ML @ Wide Open IV. 1000 / 1000 SIG BOLUS YOLI Rx#:[id number] NS Inj 500 ML @ Wide Open IV. 1000 / 1000 SIG BOLUS YOLI Rx#:[id number] Other: # Voids 1 2 Date of Last Bowel Movement 12/14/17 Weight On Admission 61.2 kg Narrative: GENERAL: No distress. SKIN: Focused skin assessment warm/dry. HEAD: Atraumatic. Normocephalic. EYES: Pupils equal and round. No scleral icterus. No injection or drainage. ENT: No nasal bleeding or discharge. Mucous membranes pink and moist. NECK: Trachea midline. CARDIOVASCULAR: Regular rate and rhythm. RESPIRATORY: No accessory muscle use. Clear to auscultation. Breath sounds equal bilaterally. GASTROINTESTINAL: Abdomen soft, nontender, nondistended. Hepatic and splenic margins not palpable. MUSCULOSKELETAL: No obvious deformities. No clubbing. No cyanosis. No significant edema. NEUROLOGICAL: Awake and alert. Motor grossly within normal limits. Normal speech. PSYCHIATRIC: Appropriate mood and affect; insight and judgment normal. Results - Labs CBC & Chem 7: 12/15/17 05:38 12/15/17 05:38 Laboratory Results - last 24 hr 12/14/17 12/14/17 12/14/17 13:50 13:50 13:50 CBC w Diff Auto diff final WBC 14.0 H RBC 4.45 Hgb 13.4 Hct 40.3 MCV 90.6 MCH 30.2 MCHC 33.3 RDW 11.9 Plt Count 320 MPV 8.6 Neut % (Auto) 90.3 H Lymph % (Auto) 6.1 L [place] % (Auto) 2.2 Eos % (Auto) 0.1 Baso % (Auto) 1.3 Neut # (Auto) 12.6 H Lymph # (Auto) 0.9 L [place] # (Auto) 0.3 Eos # (Auto) 0.0 Baso # (Auto) 0.2 WBC Differential . Differential Comment . PT INR APTT Sodium 133 L Potassium 4.5 Chloride 95 L Carbon Dioxide 25.8 Anion Gap 12 BUN 38 H Creatinine 1.80 H Estimated GFR 27 L POC Glucose Random Glucose 445 H Lactic Acid 2.6 H Calcium 9.1 Total Bilirubin 0.6 AST 19 ALT 16 Alkaline Phosphatase 142 H Total Creatine Kinase Troponin I Total Protein 8.2 Albumin 3.2 L Lipase 68 L Beta-Hydroxybutyric Acd 1.58 H Ur Collection Type Urine Color Urine Clarity Urine pH Ur Specific [place] Urine Protein Urine Glucose (UA) Urine Ketones Urine Occult Blood Urine Nitrate Urine Bilirubin Urine Urobilinogen Ur Leukocyte Esterase Urine RBC Urine WBC Ur Squamous Epith Cells Urine Bacteria Micro UA Comment Ur Microscopic Review Urine Culture Comments 12/14/17 12/14/17 12/14/17 13:50 14:28 15:30 CBC w Diff WBC RBC Hgb Hct MCV MCH MCHC RDW Plt Count MPV Neut % (Auto) Lymph % (Auto) [place] % (Auto) Eos % (Auto) Baso % (Auto) Neut # (Auto) Lymph # (Auto) [place] # (Auto) Eos # (Auto) Baso # (Auto) WBC Differential Differential Comment PT INR APTT Sodium Potassium Chloride Carbon Dioxide Anion Gap BUN Creatinine Estimated GFR POC Glucose 393 H Random Glucose Lactic Acid Calcium Total Bilirubin AST ALT Alkaline Phosphatase Total Creatine Kinase 53 Troponin I 0.54 H Total Protein Albumin Lipase Beta-Hydroxybutyric Acd Ur Collection Type [place] Urine Color Yellow Urine Clarity Clear Urine pH 6.0 Ur Specific [place] 1.020 Urine Protein 100 H Urine Glucose (UA) 1000 or greater H Urine Ketones 15 H Urine Occult Blood Large H Urine Nitrate Negative Urine Bilirubin Negative Urine Urobilinogen 0.2 Ur Leukocyte Esterase Negative Urine RBC 51-189 H Urine WBC 0-5 Ur Squamous Epith Cells 0-5 Urine Bacteria Rare H Micro UA Comment Culture not ind Ur Microscopic Review Microscopic reviewed Urine Culture Comments Culture not ind 12/14/17 12/14/17 12/14/17 17:18 19:40 20:34 CBC w Diff WBC RBC Hgb Hct MCV MCH MCHC RDW Plt Count MPV Neut % (Auto) Lymph % (Auto) [place] % (Auto) Eos % (Auto) Baso % (Auto) Neut # (Auto) Lymph # (Auto) [place] # (Auto) Eos # (Auto) Baso # (Auto) WBC Differential Differential Comment PT INR APTT Sodium Potassium Chloride Carbon Dioxide Anion Gap BUN Creatinine Estimated GFR POC Glucose 388 H 361 H Random Glucose Lactic Acid Calcium Total Bilirubin AST ALT Alkaline Phosphatase Total Creatine Kinase Troponin I 1.07 H* D Total Protein Albumin Lipase Beta-Hydroxybutyric Acd Ur Collection Type Urine Color Urine Clarity Urine pH Ur Specific [place] Urine Protein Urine Glucose (UA) Urine Ketones Urine Occult Blood Urine Nitrate Urine Bilirubin Urine Urobilinogen Ur Leukocyte Esterase Urine RBC Urine WBC Ur Squamous Epith Cells Urine Bacteria Micro UA Comment Ur Microscopic Review Urine Culture Comments 12/14/17 12/15/17 12/15/17 21:30 00:30 02:20 CBC w Diff WBC RBC Hgb Hct MCV MCH MCHC RDW Plt Count MPV Neut % (Auto) Lymph % (Auto) [place] % (Auto) Eos % (Auto) Baso % (Auto) Neut # (Auto) Lymph # (Auto) [place] # (Auto) Eos # (Auto) Baso # (Auto) WBC Differential Differential Comment PT 10.1 INR 1.0 APTT 28.5 Sodium Potassium Chloride Carbon Dioxide Anion Gap BUN Creatinine Estimated GFR POC Glucose 219 H Random Glucose Lactic Acid Calcium Total Bilirubin AST ALT Alkaline Phosphatase Total Creatine Kinase Troponin I 1.06 H* Total Protein Albumin Lipase Beta-Hydroxybutyric Acd Ur Collection Type Urine Color Urine Clarity Urine pH Ur Specific [place] Urine Protein Urine Glucose (UA) Urine Ketones Urine Occult Blood Urine Nitrate Urine Bilirubin Urine Urobilinogen Ur Leukocyte Esterase Urine RBC Urine WBC Ur Squamous Epith Cells Urine Bacteria Micro UA Comment Ur Microscopic Review Urine Culture Comments 12/15/17 12/15/17 12/15/17 04:37 05:38 05:38 CBC w Diff Auto diff final WBC 11.5 H RBC 3.32 L Hgb 10.4 L D Hct 29.9 L MCV 90.0 MCH 31.3 MCHC 34.8 RDW 13.5 Plt Count 241 MPV 9.0 Neut % (Auto) 82.3 H Lymph % (Auto) 9.4 [place] % (Auto) 7.6 Eos % (Auto) 0.4 Baso % (Auto) 0.3 Neut # (Auto) 9.5 H Lymph # (Auto) 1.1 [place] # (Auto) 0.9 Eos # (Auto) 0.0 Baso # (Auto) 0.0 WBC Differential . Differential Comment . PT INR APTT 95.6 H* D Sodium 139 Potassium 4.0 Chloride 105 D Carbon Dioxide 25.7 Anion Gap 8 BUN 34 H Creatinine 1.40 H Estimated GFR 37 L POC Glucose Random Glucose 200 H D Lactic Acid Calcium 7.8 L D Total Bilirubin 0.3 AST 17 ALT 12 Alkaline Phosphatase 92 Total Creatine Kinase Troponin I Total Protein 5.8 L D Albumin 2.3 L D Lipase Beta-Hydroxybutyric Acd Ur Collection Type Urine Color Urine Clarity Urine pH Ur Specific [place] Urine Protein Urine Glucose (UA) Urine Ketones Urine Occult Blood Urine Nitrate Urine Bilirubin Urine Urobilinogen Ur Leukocyte Esterase Urine RBC Urine WBC Ur Squamous Epith Cells Urine Bacteria Micro UA Comment Ur Microscopic Review Urine Culture Comments 12/15/17 12/15/17 12/15/17 08:19 08:40 08:40 CBC w Diff WBC RBC Hgb Hct MCV MCH MCHC RDW Plt Count MPV Neut % (Auto) Lymph % (Auto) [place] % (Auto) Eos % (Auto) Baso % (Auto) Neut # (Auto) Lymph # (Auto) [place] # (Auto) Eos # (Auto) Baso # (Auto) WBC Differential Differential Comment PT INR APTT 87.7 H Sodium Potassium Chloride Carbon Dioxide Anion Gap BUN Creatinine Estimated GFR POC Glucose 251 H Random Glucose Lactic Acid 1.1 Calcium Total Bilirubin AST ALT Alkaline Phosphatase Total Creatine Kinase Troponin I Total Protein Albumin Lipase Beta-Hydroxybutyric Acd Ur Collection Type Urine Color Urine Clarity Urine pH Ur Specific [place] Urine Protein Urine Glucose (UA) Urine Ketones Urine Occult Blood Urine Nitrate Urine Bilirubin Urine Urobilinogen Ur Leukocyte Esterase Urine RBC Urine WBC Ur Squamous Epith Cells Urine Bacteria Micro UA Comment Ur Microscopic Review Urine Culture Comments 12/15/17 11:53 CBC w Diff WBC RBC Hgb Hct MCV MCH MCHC RDW Plt Count MPV Neut % (Auto) Lymph % (Auto) [place] % (Auto) Eos % (Auto) Baso % (Auto) Neut # (Auto) Lymph # (Auto) [place] # (Auto) Eos # (Auto) Baso # (Auto) WBC Differential Differential Comment PT INR APTT Sodium Potassium Chloride Carbon Dioxide Anion Gap BUN Creatinine Estimated GFR POC Glucose 256 H Random Glucose Lactic Acid Calcium Total Bilirubin AST ALT Alkaline Phosphatase Total Creatine Kinase Troponin I Total Protein Albumin Lipase Beta-Hydroxybutyric Acd Ur Collection Type Urine Color Urine Clarity Urine pH Ur Specific [place] Urine Protein Urine Glucose (UA) Urine Ketones Urine Occult Blood Urine Nitrate Urine Bilirubin Urine Urobilinogen Ur Leukocyte Esterase Urine RBC Urine WBC Ur Squamous Epith Cells Urine Bacteria Micro UA Comment Ur Microscopic Review Urine Culture Comments Microbiology 12/14/17 16:05 Blood - Peripheral Aerobic Blood Culture - Preliminary No growth in 1 day 12/14/17 16:05 Blood - Peripheral Anaerobic Blood Culture - Preliminary No growth in 1 day 12/14/17 16:00 Blood - Peripheral Aerobic Blood Culture - Preliminary No growth in 1 day 12/14/17 16:00 Blood - Peripheral Anaerobic Blood Culture - Preliminary No growth in 1 day - Imaging Impressions Abdomen/Pelvis CT 12/14/17 15:01 CONCLUSION: 1. Large stool burden identified within the colon. No abnormal wall thickening and no evidence of bowel obstruction. 2. There is mild left perinephric fluid without visible obstructing lesion or other abnormality. Etiology of this is unknown. 3. Layering sludge identified within an otherwise unremarkable bladder. 4. Stable stone identified within the right renal pelvis. No evidence of hydronephrosis. Chest X-Ray 12/14/17 17:45 CONCLUSION: Stable lung appearance which may reflect chronic edema or fibrosis. No new lung abnormality seen to suggest pneumonia. Assessment and Plan - Plan NSTEMI May be s/t demand ischemia from GI distress. Pt does have a history of CAD s/p CABG. She did report a negative stress test earlier this year. She denies any chest pain or shortness of breath. EKG without acute ischemia. Troponin elevated over 1. -telemetry. -consulted cardiology. Plan for transfer to [facility] for cath. -heparin gtt. -continue cardiac regimen. N/V/D Possibly s/t gastroenteritis or gastroparesis. CT abdomen without significant pathology. Symptoms currently resolved. -antiemetics as needed. -IVFs. -diabetic diet. NPO at midnight per cardiology. DM The pt did not take insulin s/t GI distress and her glucose has been quite elevated. -Regular insulin 10 units x 1. -insulin sliding scale. -resume home regimen following cath. CKD Stage 3. Creatinine not far from baseline. -IVFs. -follow BMP and avoid nephrotoxins. Leukocytosis Likely s/t gastroenteritis or reactive. UA not indicative of infection. CXR stable. -monitor as needed. PPx: Heparin gtt Discharge Planning: Transfer to [facility]
--- NOTE | 2017-12-15 14:03 | MB ---
cc: John Mora MD DATE: 12/15/2017 Yoana is a very pleasant 77-year-old lady with history of coronary artery disease, status post emergent CABG while on a trip to [place] several years ago. Also, history of diabetes mellitus, chronic renal insufficiency, hypertension. She returns from a recent trip to [place] with her . On Saturday, she developed nausea, vomiting, diarrhea. She did not take her insulin as her felt that she was "going to go into a coma." She is currently fast asleep, easily arousable, in no acute distress. She denies chest pain, fever, chills, cough, GI or bleeding, PND, orthopnea, history of dizziness. PAST MEDICAL HISTORY: As per history of present illness. ALLERGIES: MORPHINE. SOCIAL HISTORY: She denies tobacco or alcohol use. MEDICATIONS: 1. Aspirin 81 mg a day. 2. Lipitor 40 mg daily. 3. Rocaltrol 0.25 mg p.o. Saturday, Saturday, Saturday. 4. Carvedilol 3.125 b.i.d. 5. IV heparin. 6. Insulin. 7. Reglan. PHYSICAL EXAMINATION: VITAL SIGNS: Blood pressure 130/45, pulse 92, respiratory rate 19, temperature 98.4, saturations 95% on room air. GENERAL: She is alert and oriented x3, in no acute distress. NECK: Supple. No JVD. No bruit. CARDIOVASCULAR: S1, S2. No murmurs, rubs, gallops. LUNGS: Coarse bilaterally. ABDOMEN: Soft, nontender, nondistended with positive bowel sounds. EXTREMITIES: Lower extremity edema. LABORATORY DATA: EKG shows normal sinus rhythm at 98 beats per minute with resting 0.5-[address] segment depression in leads I, aVL, II, III, aVF, V3, V4, V5, V6, suggestive of resting ischemia. Abdominal pelvic CT: Mild left hernia defect noted without visible obstructing lesion or other abnormality. Sludge identified within an otherwise unremarkable bladder. Stable stone identified within the right renal pelvis. No evidence of hydronephrosis. Chest x-ray: Stable lung appearance which may reflect chronic edema or fibrosis. No new lung abnormalities seen to suggest pneumonia. EKG at 2 a.m. on 12/15/2017 shows normal sinus rhythm at 94 beats per minute, 1-2 mm T-wave inversion in lead V2, 0.5-[address] depression in leads II, III, F, V4, V5, V6, again suggestive of resting ischemia. Blood cultures are negative x1 day. LABORATORY DATA: White count 9.5, hemoglobin 10.4, hematocrit 29.9, platelet count 241. INR is 1.0, PTT from this morning is 87.7. Sodium 139, potassium 4.0, chloride 105, bicarbonate 25.7, BUN 34, creatinine 1.40. Initial CK is 53 with initial troponin of 0.54, second troponin of 1.07, last troponin 1.06. Albumin 3.3. DIAGNOSES: 1. Esi-FV-fylinbxmh myocardial infarction. 2. Coronary artery disease. 3. Diabetes. 4. Acute renal failure. 5. Hyponatremia. 6. Chronic renal insufficiency. 7. Hyperglycemia. 8. Gastroenteritis. 9. Gastroparesis. 10. Leukocytosis. 11. Anemia. DISCUSSION: At this point in time, the patient is being appropriately treated with aspirin and heparin drip. She is asymptomatic. We would recommend also to continue Lipitor, Coreg. VICTOR M inhibitor was held due to acute renal failure on chronic renal insufficiency. I have advised the nurse to have the patient transferred as soon as possible to the main hospital. Recommend left heart catheterization when the patient is more medically stable. We will need to follow trends in glucose, hemoglobin, vital signs, and symptoms. MD RUPERT Maldonado/yaneth , 12:00 PM , 12:10 PM
--- NOTE | 2017-12-15 15:26 | P.DCO ---
- Physical Therapy Order: Evaluate and treat, Improve ambulation, Strength and gait training - Home Health Nursing Order: Medical education, Signs/symptoms of disease process, Medication education-adverse effect, Nursing assessment with vital signs - Certification I have seen patient Yoana Pina on 12/15/17. My clinical findings support the need for the requested home health care services because: Deconditioned with increased weakness I certify that my clinical findings support that this patient is homebound because: Unsafe to leave home unassisted
[2017-12-16 06:52] LABS: Hematocrit 30.5 % (35.0-46.0); Mean Corpuscular HGB Conc 32.7 % (32.0-36.0); Mean Corpuscular Hemoglobin 30.3 pg (27.0-34.0); Mean Corpuscular Volume 92.8 fL (80.0-100.0); Mean Platelet Volume 9.7 fL (7.0-11.0); Platelet Count 195 th/mm3 (150-450); Red Blood Count 3.29 mil/mm3 (4.00-5.30); Red Cell Distribution Width 13.4 % (11.6-17.2); White Blood Count 8.7 th/mm3 (4.0-11.0)
[2017-12-16 07:12] LABS: Calcium 7.7 mg/dL (8.5-10.1); Carbon Dioxide 26.7 meq/L (21.0-32.0); Magnesium 1.8 mg/dL (1.5-2.5)
[2017-12-16] MEDS ORDERED: Calcitriol 0.25 MCG Capsule PO SCH (09:00)
[2017-12-16] MEDS: Senna/Docusate Sodium 8.6/50 MG Tablet PO SCH ×2 (09:20→22:39)
[2017-12-16] MEDS ORDERED: Heparin/NS PF Inj 1,500 ML ONE (11:34)
[2017-12-16] MEDS ORDERED: fentaNYL Citrate Inj 100 MCG/2 ML Ampul ONE (12:00)
[2017-12-16] MEDS ORDERED: Heparin 10,000 UNITS/10 ML Vial (for IV use) ONE (12:26)
[2017-12-16] MEDS ORDERED: Tirofiban Inj 12,500 MCG/250 ML PLAST..BAG ONE (12:40)
--- NOTE | 2017-12-16 13:03 | CATHPROC ---
[employer] HIS Report Study Information Study Number Admission Scheduled Start Study Start [id number] Dec 14 2017 4:32PM 12/16/2017 Dec 16 2017 11:42AM [place] [facility] Cardiac Catheterization Admit Source Facility Department Other [facility] - [facility] Physician and Clinical Staff Initial John Fernandez Machine Try Out Setter Fanny Forte,RN Machine Try Out Setter Abraham Cervantes,RN Recorder Ricarda Hatfield ,RT(R) Scrub Raghav De La Fuente RCIS(BS) Procedures Performed Procedure Location (Site) Vessel Name Coronary Angiograms LCA Left Coronary Coronary Angiograms RCA Right Coronary Coronary Angiograms SVG-OM CIRC Coronary Angiograms SVG-RCA Right Coronary Coronary Angiograms ISIDRO ISIDRO L Heart Cath LV Gram-hand inj. LV LV Ventricle PTCA LAD Prox Left Coronary Stent LAD Prox Left Coronary Wire insertion Fem Art (right) Femoral Art Equipment Time Telephoner Description Size Mfg Part Number Used/Scraped [id number] 12:28 [employer] WIRE, ASAHI PROWATER 180CM 180CM Used *[id number] TRANSDUCER, TRUWAVE [id number] 11:45 LAU BOLTON * Used W/STOCKCOCK *[id number] [id number] *[id number] *[id number] *[id number] 11:45 [employer] BLANKET,WARM AIR CCL * Used *[id number] 11:45 [employer] PACK, CCL CUSTOM * Used *[id number] 11:45 [employer] PACER PEN, SKIN DUAL W/ RULER * Used *[id number] BALLOON, 2.5 X 8MM NC [id number] 12:36 [employer] 8MM Used EUPHORA *[id number] 12:33 [employer] STENT, 2.5 8 INTEGRITY 2.5 8 Used *[id number] 12:40 [employer] MEDICAL 30 KAREN INDEFLATOR Used *[id number] 12:28 [employer] MEDICAL SHEATH, FR6.5 PRELUDE 11CM FR 6.5 038ACT Used *[id number] 11:45 [employer] WIRE, 3MMJ .035 180CM 180CM Used *[id number] 11:45 NAMIC MANIFOLD, 4 PORT * Used *[id number] 11:45 [employer] OMNIPAQUE, 350 MG, 150ML 150ML [id number] Used [id number] 11:45 TERUMO MEDICAL SHEATH, FR4 TERUMO (10CM) FR 4 Used *[id number] Equipment Model, Serial, Lot Number and Expiration Data Description Model Number Serial Number Lot Number Expiration Date STENT, 2.5 8 INTEGRITY [id number] 08-22-2019 History: Current Medications Medication Dosage/Unit Route Frequency Last Date/Time Taken ASA LIPITOR History: Allergies Allergy Reaction morphine VOMITING History: Risk Factors Family History of Hypertension Dyslipidemia Previous KS Previous Heart Failure Premature CAD Yes Yes Yes Yes No Prior Valve Prior PCI Prior CABG Prior CABGDate Surgery No No Yes 04/08/2012 Cerebrovascular Peripheral Artery Chronic Lung On Dialysis Diabetes Disease Disease Disease No No No No Yes History: Other Current Smoker No Labs Hgb (g/dl) Hct (%) WBC (l/cumm) Platelets (thousands) 11.60-17.00 35.00-51.00 4.00-11.00 150.00-450.00 10.0 30.5 8.7 195 Glucose (mg/dl) BUN (mg/dl) Creatinine (mg/dl) BUN:Creatinine (1:x) 74.00-106.00 7.00-18.00 0.50-1.30 10.00-20.00 285 26 1.1 23.6 Na (meq/l) K (meq/l) 136.00-145.00 3.50-5.10 140 4 INR (PTT:PT) 0.90-1.10 1 Troponin I (ng/ml) CPK-MB (ng/ML) 0.02-0.05 0.50-3.60 1.07 Not Drawn Medication Medication Total Dose (Bolus/Oral) Medication Total Dosage/Unit 1% XYLOCAINE 20 mL AGGRASTAT BOLUS 31.3 meq/kg EFFIENT 60 mg FENTANYL 50 mcg HEPARIN 4400 units VERSED 1 mg Medications (Bolus/Oral) Medication Time Given Dosage/Unit Administered By Reason VERSED 12/16/2017 12:09:43 PM 1 mg Billy, Abraham 1 mg VERSED given in lab by Abraham Cervantes, RN in Right Forearm via Peripheral IV. Ordered by John Mora. FENTANYL 12/16/2017 12:10:00 PM 25 mcg Billy, Abraham 25 mcg FENTANYL given in lab by Abraham Cervantes RN in Right Forearm via Peripheral IV. Ordered by John Gentile. 1% XYLOCAINE 12/16/2017 12:12:01 PM 20 mL John Mora 20 mL 1% XYLOCAINE given in lab by John Mora in Right Groin via Subcutaneous. Ordered by John Gentile. FENTANYL 12/16/2017 12:13:01 PM 25 mcg Abraham Cervantes 25 mcg FENTANYL given in lab by Abraham Cervantes RN in Right Forearm via Peripheral IV. Ordered by John Gentile. HEPARIN 12/16/2017 12:27:20 PM 4400 units Abraham Cervantes 4400 units HEPARIN given in lab by Abraham Cervantes RN in Right Forearm via Peripheral IV. Ordered by John Ojeda. AGGRASTAT BOLUS 12/16/2017 12:47:54 PM 31.3 meq/kg Abraham Cervantes 31.3 meq/kg AGGRASTAT BOLUS given in lab by Abraham Cervantes RN via Peripheral IV. Amount given = 1962.5 1 meq. Ordered by John Mora. EFFIENT 12/16/2017 12:59:34 PM 60 mg Abraham Cervantes 60 mg EFFIENT given in lab by Abraham Cervantes RN via Oral. Ordered by John Mora. Medication (Drip) Medication Time Given Dosage/Unit Concentration/Unit Diluent (ml) Solution AGGRASTAT DRIP 12/16/2017 12:52:02 PM 0.15 mcg/kg/min 12.5 mg 250 NaCl .9 0.15 mcg/kg/min AGGRASTAT DRIP given in lab by Abraham Cervantes RN via Peripheral IV. Pump/Drip Flow = 1 1.3 ml/hr using NaCl .9 with a concentration of 12.5 mg in 250 ml. Ordered by John Mora. IV Solutions 12/16/2017 12:03:55 PM 50 mL (IV) NaCl .9 Patient arrived on IV Solutions via Peripheral IV. Pump/Drip Flow using NaCl .9. Initial Case Assessment Cardiovascular HR Rhythm NIBP Chest Pain 89 sr 170/77 0 Edema Present Skin color Skin None Normal Warm Dry Circulatory - Right Pulses Dorsalis Pedis Femoral 1 2 Scale (0,1,2,3,4,d) Circulatory - Left Pulses Dorsalis Pedis Femoral 1 1 Scale (0,1,2,3,4,d) Neurological State Oriented to time-place- Alert Moves all extremities person Respiration - General Respiration Rate SpO2 (%) (B/min) 19 98 Final Case Assessment Cardiovascular HR Rhythm NIBP Chest Pain 96 sr 170/77 0 Edema Present Skin color Skin None Normal Warm Dry Circulatory - Right Pulses Dorsalis Pedis Femoral 1 2 Scale (0,1,2,3,4,d) Circulatory - Left Pulses Dorsalis Pedis Femoral 1 1 Scale (0,1,2,3,4,d) Neurological State Oriented to time-place- Alert Moves all extremities person Respiration - General Respiration Rate SpO2 (%) (B/min) 15 96 Chronological Log Time Study Chronological Log 11:50:00 Patient arrived via Bed. 11:50:01 Patient Name, D.O.B, / Armband Verified By R.N. 11:50:01 Consent signed by the physician and the patient and verified by the [facility] staff. Vitals capture started with the following parameters, Patient=Adult, Interval=3 min, Initial Pr jehzid=466 mmHg, 11:54:03 Deflation Rate=5 mmHg, Cuff placed on Left Arm 11:54:23 Pre-op and post- op instructions given; patient acknowledges understanding of instructions. 11:54:40 Patient has been NPO for More than 6Hrs. 11:54:43 Skin Breakdown-none per pt 11:54:45 Patient Warmer Placed on the Table. 11:54:47 Mar Prominences Protected 11:54:59 HR=91 bpm, GRGM=362/77 mmhg, SpO2=98.0 %, Resp=10 B/min 11:54:59 History and physical on the chart or being dictated. Assessment: Initial Case, HR=89 BPM, Rhythm=sr, MNDE=080/77 mmhg, Chest Pain=0, Edema=None, Col or=Normal, Skin = Warm, Dry Right Pulses: Conrad Ped=1, Femoral=2 11:55:16 Left Pulses: Conrad Ped=1, Femoral=1 Neurological: State=Alert, Ox3, LEONARD Respiration: Resp=19 B/min, SpO2=98 % 11:56:32 A # 20 IV was noted in the Forearm (right). Grade = 0 11:57:45 EG=689 bpm, KVJX=595/76 mmhg, SpO2=97.0 %, Resp=23 B/min, Pain=0, Fanny=10, Mcconnell=2 12:00:45 HR=89 bpm, DCGM=169/76 mmhg, SpO2=97.0 %, Resp=22 B/min, Pain=0, Fanny=10, Mcconnell=2 12:02:08 paged 12:03:48 HR=88 bpm, BIOM=587/75 mmhg, SpO2=98.0 %, Resp=19 B/min 12:03:55 Patient arrived on IV Solutions via Peripheral IV. Pump/Drip Flow using NaCl .9. 12:04:24 Bilateral groins prepped with 2% chlorhexidine, and draped after a 3 minute waiting time. 12:04:35 MD responded 12:06:02 Reference ECG taken 12:06:35 Pressure channel 1 zeroed. 12:06:46 HR=87 bpm, NJAO=571/70 mmhg, SpO2=99.0 %, Resp=21 B/min, Pain=0, Fanny=10, Mcconnell=2 12:08:08 MD arrived. 12:09:43 1 mg VERSED given in lab by Abraham Cervantes RN in Right Forearm via Peripheral IV. Ordered by John Mora. 12:09:44 HR=87 bpm, LRUX=649/76 mmhg, SpO2=98.0 %, Resp=21 B/min, Pain=0, Fanny=10, Mcconnell=2 12:10:00 25 mcg FENTANYL given in lab by Abraham Cervantes RN in Right Forearm via Peripheral IV. Ordere d by John Mora. Time Out. Correct patient, correct procedure, correct physician, labs, allergies, and equipment verified with rn cardiac cath 12:11:29 team present. Fire risk assesment completed (see hard stop sheet for coding). Time Out Conc urred by and individual staff in procedure. 12:11:57 Case Start 20 mL 1% XYLOCAINE given in lab by John Mora in Right Groin via Subcutaneous. Ordered by Morgan, 12:12:01 John. 12:12:50 HR=84 bpm, WGVX=185/57 mmhg, SpO2=97.0 %, Resp=34 B/min, Pain=0, Fanny=10, Mcconnell=2 12:13:01 25 mcg FENTANYL given in lab by Abraham Cervantes RN in Right Forearm via Peripheral IV. Ordere d by John Mora. 12:15:01 Access site was Right Femoral Artery. 12:15:07 A SHEATH, FR4 TERUMO (10CM) FR 4 was advanced into the Fem Art (right) using the Percutaneo us technique. 12:15:17 Activated Clotting Time Drawn 12:15:44 HR=76 bpm, ZPBU=841/51 mmhg, SpO2=93.0 %, Resp=17 B/min, Pain=0, Fanny=10, Mcconnell=2 A JR 4.0 INFINITI CATHETER FR 4 was advanced over a wire. OMNIPAQUE, 350 MG, 150ML 150ML was us ed for 12:15:53 injections. Recorded Pressure: LV, HR=82, Condition=Condition 1 12:16:28 (Left Ventricle) LV 147/68/142 12:16:30 The LV was manually injected with 10 cc's and visualized. OMNIPAQUE, 350 MG, 150ML 150ML us ed. Recorded Pressure: LV, Ao, HR=84, Condition=Condition 1 12:16:44 (Left Ventricle) LV 185/50/6, (Aorta) Ao 143/50/89 12:17:40 The RCA was injected and visualized at various angles. OMNIPAQUE, 350 MG, 150ML 150ML used . 12:18:10 The SVG-OM was injected and visualized at various angles. OMNIPAQUE, 350 MG, 150ML 150ML us ed. 12:18:43 HR=82 bpm, NHAP=798/52 mmhg, SpO2=93.0 %, Resp=14 B/min, Pain=0, Fanny=10, Mcconnell=2 Recorded Pressure: Ao, HR=84, Condition=Condition 1 12:18:49 (Aorta) Ao 130/46/81 12:19:23 ACT (Normal Range 90-180) = 111 12:20:43 The SVG-RCA was injected and visualized at various angles. OMNIPAQUE, 350 MG, 150ML 150ML u sed. 12:21:45 HR=83 bpm, HLLQ=692/48 mmhg, SpO2=93.0 %, Resp=15 B/min, Pain=0, Fanny=10, Mcconnell=2 12:23:47 The ISIDRO was injected and visualized at various angles. OMNIPAQUE, 350 MG, 150ML 150ML used . After removing the current catheter a JL 4.0 INFINITI CATHETER FR 4 was advanced over a WIRE, 3 MMJ .035 180CM 12:24:20 180CM. 12:24:45 HR=85 bpm, JOGD=432/48 mmhg, SpO2=92.0 %, Resp=16 B/min, Pain=0, Fanny=10, Mcconnell=2 12:24:53 The LCA was injected and visualized at various angles. OMNIPAQUE, 350 MG, 150ML 150ML used . 12:27:20 4400 units HEPARIN given in lab by Abraham Cervantes RN in Right Forearm via Peripheral IV. Ord ered by John Mora. 12:27:41 HR=90 bpm, MVHI=399/57 mmhg, SpO2=94.0 %, Resp=19 B/min A SHEATH, FR6.5 PRELUDE 11CM FR 6.5 was exchanged in the Fem Art (right). This was necessary in order to 12:27:47 accomodate a larger catheter. A XB 3.5 GUIDE CATHETER FR 6 was advanced over a wire. OMNIPAQUE, 350 MG, 150ML 150ML was used for 12:28:56 injections. 12:30:43 HR=88 bpm, YQSM=631/56 mmhg, SpO2=95.0 %, Resp=16 B/min 12:30:45 A WIRE, ASAHI PROWATER 180CM 180CM was inserted via Fem Art (right). 12:31:46 Interventional wire has crossed the lesion 12:32:45 Activated Clotting Time Drawn 12:33:46 HR=86 bpm, SNMA=579/54 mmhg, SpO2=96.0 %, Resp=15 B/min An STENT, 2.5 8 INTEGRITY 2.5 8 Bare Metal Stent was inserted through a XB 3.5 GUIDE CATHETER F R 6 over a 12:34:18 WIRE, ASAHI PROWATER 180CM 180CM. 12:35:16 Stent not deployed. Stent removed and intact. A BALLOON, 2.5 X 8MM NC EUPHORA 8MM was inserted over WIRE, ASAHI PROWATER 180CM 180CM via the Fem Art 12:36:45 (right). 12:36:48 HR=88 bpm, DAEX=676/51 mmhg, SpO2=94.0 %, Resp=15 B/min 12:38:24 ACT (Normal Range 90-180) = 398 A BALLOON, 2.5 X 8MM NC EUPHORA 8MM over a WIRE, ASAHI PROWATER 180CM 180CM in the LAD Prox was 12:39:02 inflated using a 30 KAREN INDEFLATOR at 11 karen for 15 sec. 12:39:46 HR=89 bpm, VOOH=387/61 mmhg, SpO2=97.0 %, Resp=17 B/min A BALLOON, 2.5 X 8MM NC EUPHORA 8MM over a WIRE, ASAHI PROWATER 180CM 180CM in the LAD Prox was 12:40:04 inflated using a 30 KAREN INDEFLATOR at 10 karen for 10 sec. 12:40:49 Balloon Removed. An STENT, 2.5 8 INTEGRITY 2.5 8 Bare Metal Stent was inserted through a XB 3.5 GUIDE CATHETER F R 6 over a 12:41:57 WIRE, ASAHI PROWATER 180CM 180CM. A STENT, 2.5 8 INTEGRITY 2.5 8 was deployed using a 30 KAREN INDEFLATOR at 11 atmospheres for 15 seconds in the 12:42:36 LAD Prox. 12:42:44 HR=89 bpm, AQJO=359/66 mmhg, SpO2=95.0 %, Resp=20 B/min 12:44:39 Delivery device removed 12:44:49 Wire removed 12:44:53 Catheter was removed 12:45:05 Case End (Physician broke scrub) Assessment: Final Case, HR=96 BPM, Rhythm=sr, JYKA=328/77 mmhg, Chest Pain=0, Edema=None, Color =Normal, Skin = Warm, Dry Right Pulses: Conrad Ped=1, Femoral=2 12:45:23 Left Pulses: Conrad Ped=1, Femoral=1 Neurological: State=Alert, Ox3, LEONARD Respiration: Resp=15 B/min, SpO2=96 % 12:45:45 Catheter(s) removed without difficulty 12:45:47 HR=96 bpm, RGVI=259/64 mmhg, SpO2=96.0 %, Resp=20 B/min 12:45:50 In the Fem Art (right) the SHEATH, FR6.5 PRELUDE 11CM FR 6.[address] by John Kyle. 12:46:00 Sterile dressing applied to site 12:46:01 No case complications noted. 12:46:03 Cine recording checked. 12:46:05 Bedside Report will be given. 12:46:11 Implantable Device card placed in patient's chart. 12:46:32 A Left Heart Cath was performed. 31.3 meq/kg AGGRASTAT BOLUS given in lab by Abraham Cervantes RN via Peripheral IV. Amount given = 1962.51 meq. 12:47:54 Ordered by John Mora. 12:48:47 HR=92 bpm, UWMB=346/69 mmhg, SpO2=97.0 %, Resp=13 B/min 12:51:47 HR=91 bpm, LLHU=926/64 mmhg, SpO2=95.0 %, Resp=18 B/min 0.15 mcg/kg/min AGGRASTAT DRIP given in lab by Abraham Cervantes RN via Peripheral IV. Pump/Drip F low = 11.3 ml/hr 12:52:02 using NaCl .9 with a concentration of 12.5 mg in 250 ml. Ordered by John Mora. 12:54:49 HR=88 bpm, XDAL=303/58 mmhg, SpO2=98.0 %, Resp=18 B/min, Pain=0, Fanny=10, Mcconnell=2 12:56:39 Vitals capture stopped. 12:59:34 60 mg EFFIENT given in lab by Abraham Cervantes RN via Oral. Ordered by John Mora. 13:02:45 Patient moved to [facility] End Study - Contrast Media Used In Study Contrast Total Opened (mL) Total Used (mL) Total Wasted (mL) Omnipaque 155 155 0 End Study - Maximum Contrast Load Max Contrast Load (mL) 285.1 End Study - Radiation Exposure Fluoro Time (minutes) 12.0 End Study - Patient Disposition Complications Transferred To Interventional Outcome No Telemetry Bed successful
[2017-12-16] MEDS ORDERED: TIROFIBAN BOLUS IV.PUSH ONE (13:44)
[2017-12-16] MEDS ORDERED: Misc Info for Pharmacy OTHER STA (13:44)
[2017-12-16] MEDS ORDERED: Iohexol 350 MG/ML 100 ML Vial (for Cath Lab) IVCONTRAST ONE (13:49)
[2017-12-16] MEDS ORDERED: Tirofiban Inj 12,500 MCG/250 ML PLAST..BAG IV.CONT SCH (14:00)
--- NOTE | 2017-12-16 16:30 | P.PN ---
Subjective Interval history: back from cath- patient no complaoms of chest pain or shortness of breath teleemtry- sinus rhythm Physical Exam Vital signs: Vital Signs 12/15/17 17:00 12/15/17 20:00 12/15/17 21:00 Temperature 98.2 F Pulse Rate 84 92 H 94 H Respiratory Rate 22 Blood Pressure 113/54 L 121/54 L Pulse Oximetry 92 L 93 L 12/15/17 22:00 12/16/17 00:00 12/16/17 03:59 Temperature 97.9 F 98 F Pulse Rate 98 H 79 82 Respiratory Rate 22 20 Blood Pressure 120/50 L 132/66 Pulse Oximetry 95 96 12/16/17 08:51 Temperature 98.3 F Pulse Rate 70 Respiratory Rate 16 Blood Pressure 160/105 H Pulse Oximetry 98 Intake & Output 12/15/17 12/16/17 12/16/17 18:59 06:59 18:59 Intake Total 1720 / 1720 240 / 240 Output Total 1175 / 1175 800 / 800 Balance 545 / 545 -560 / -560 Weight 62.6 kg Intake: IV 1000 / 1000 NS Inj 1,000 ML @ 100 mls/hr IV 1000 / 1000 .CONT .Q10H YOLI Rx#:[id number] Oral 720 / 720 240 / 240 Output: Urine 1175 / 1175 800 / 800 Other: Date of Last Bowel Movement 12/14/17 12/14/17 12/15/17 # Bowel Movements 0 0 Narrative: GENERAL: No distress. SKIN: Focused skin assessment warm/dry. HEAD: Atraumatic. Normocephalic. EYES: Pupils equal and round. No scleral icterus. No injection or drainage. ENT: No nasal bleeding or discharge. Mucous membranes pink and moist. NECK: Trachea midline. CARDIOVASCULAR: Regular rate and rhythm. RESPIRATORY: No accessory muscle use. Clear to auscultation. Breath sounds equal bilaterally. GASTROINTESTINAL: Abdomen soft, nontender, nondistended. Hepatic and splenic margins not palpable. MUSCULOSKELETAL: No obvious deformities. No clubbing. No cyanosis. No significant edema. RIGHT GROIN - SHEAT IN PLACE, GOOD EPRIPHERAL PULSES NEUROLOGICAL: Awake and alert. Motor grossly within normal limits. Normal speech. PSYCHIATRIC: Appropriate mood and affect; insight and judgment normal. Results - Labs CBC & Chem 7: 12/16/17 06:11 12/16/17 06:11 Laboratory Results - last 24 hr 12/15/17 12/15/17 12/15/17 17:01 19:45 22:42 WBC RBC Hgb Hct MCV MCH MCHC RDW Plt Count MPV APTT 26.8 Sodium Potassium Chloride Carbon Dioxide Anion Gap BUN Creatinine Estimated GFR POC Glucose 201 H 215 H Random Glucose Calcium Magnesium 12/16/17 12/16/17 12/16/17 06:11 06:11 06:11 WBC 8.7 RBC 3.29 L Hgb 10.0 L Hct 30.5 L MCV 92.8 MCH 30.3 MCHC 32.7 RDW 13.4 Plt Count 195 MPV 9.7 APTT 29.0 Sodium 140 Potassium 4.0 Chloride 105 Carbon Dioxide 26.7 Anion Gap 8 BUN 26 H Creatinine 1.11 H Estimated GFR 48 L POC Glucose Random Glucose 285 H Calcium 7.7 L Magnesium 1.8 12/16/17 12/16/17 12/16/17 09:03 09:04 14:37 WBC RBC Hgb Hct MCV MCH MCHC RDW Plt Count MPV APTT Sodium Potassium Chloride Carbon Dioxide Anion Gap BUN Creatinine Estimated GFR POC Glucose 400 H 338 H 272 H Random Glucose Calcium Magnesium Microbiology 12/14/17 16:05 Blood - Peripheral Aerobic Blood Culture - Preliminary No growth in 2 days 12/14/17 16:05 Blood - Peripheral Anaerobic Blood Culture - Preliminary No growth in 2 days 12/14/17 16:00 Blood - Peripheral Aerobic Blood Culture - Preliminary No growth in 2 days 12/14/17 16:00 Blood - Peripheral Anaerobic Blood Culture - Preliminary No growth in 2 days Assessment and Plan - Plan 77 years old female NSTEMI S/P cardiac cath 12/16 - stent LCx - cardiology ff - on Effiant -continue cardiac regimen. HYpertension N/V/D- IMPROVED Possibly s/t gastroenteritis or gastroparesis. CT abdomen without significant pathology. Symptoms currently resolved. -antiemetics as needed. -IVFs. -diabetic diet. DM The pt did not take insulin s/t GI distress and her glucose has been quite elevated. -Regular insulin 10 units x 1. -insulin sliding scale. CKD Stage 3. Creatinine not far from baseline. -IVFs. -follow BMP and avoid nephrotoxins. ff BMP post cath - currently on gentle hydration Leukocytosis Likely s/t gastroenteritis or reactive. UA not indicative of infection. CXR stable. -monitor as needed. PPx: Heparin gtt Discharge Planning:
[2017-12-16] MEDS ORDERED: fentaNYL Citrate Inj 100 MCG/2 ML Ampul IV.PUSH ONE (17:20)
[2017-12-16] MEDS: Insulin NovoLOG Aspart Correctional Sugar Inj SQ SCH ×3 (20:22→22:40)
[2017-12-17 05:16] LABS: Baso # (Auto) 0.1 th/mm3 (0.0-0.2); Baso % (Auto) 0.8 % (0.0-2.0); Eos # (Auto) 0.2 th/mm3 (0.0-0.4); Eos % (Auto) 2.9 % (0.0-4.0); Hematocrit 30.1 % (35.0-46.0); Hemoglobin 9.8 gm/dL (11.6-15.3); Lymph % (Auto) 11.7 % (9.0-44.0); Mean Corpuscular HGB Conc 32.5 % (32.0-36.0); Mean Corpuscular Hemoglobin 30.1 pg (27.0-34.0); Mean Corpuscular Volume 92.6 fL (80.0-100.0); Mono % (Auto) 11.4 % (0.0-8.0); Neut # (Auto) 6.1 th/mm3 (1.8-7.7); Neut % (Auto) 73.2 % (16.0-70.0); Platelet Count 197 th/mm3 (150-450); Red Blood Count 3.25 mil/mm3 (4.00-5.30); Red Cell Distribution Width 13.2 % (11.6-17.2); White Blood Count 8.3 th/mm3 (4.0-11.0)
[2017-12-17 05:33] LABS: Calcium 7.5 mg/dL (8.5-10.1); Carbon Dioxide 24.6 meq/L (21.0-32.0); Potassium 4.4 meq/L (3.5-5.1)
[2017-12-17 05:36] LABS: Chol/HDL Ratio 3.01 Ratio; HDL Cholesterol 36.1 mg/dL (40.0-60.0)
--- NOTE | 2017-12-17 07:39 | MA ---
cc: John Mora MD DATE: 12/16/2017 PROCEDURES: 1. Left heart catheterization. 2. Left ventriculography. 3. Coronary angiography. 4. Saphenous vein angiography. 5. Left internal mammary artery angiography. 6. Percutaneous coronary intervention with bare metal stent to the proximal, mid left anterior descending. INDICATIONS FOR PROCEDURE: Non-STEMI, coronary artery disease, status post CABG, diabetes mellitus. PROCEDURE IN DETAIL: The patient was brought to the cardiac catheterization laboratory, prepped and draped in the usual sterile fashion; 10 mL of 1% lidocaine was used to locally anesthetize the right common femoral artery. A 4-[place] sheath was placed in the common femoral artery. A 4-[place] JR4 and JL4 catheter were used to perform left and right coronary angiography and left ventriculography, saphenous vein angiography, ISIDRO angiography with the following findings: LV pressures 140/10-11, EF 60%. The heart has a very vertical orientation and I cannot rule out an anterolateral aneurysm, although wall motion does appear to be gopi in this distribution, arguing against aneurysm. This may just be an atypical view. Clinical correlation recommended with 2-D echo. Right coronary artery is occluded in the ostium. There is right to right collaterals; show a very small 0.5 mm segment that supplies a very small right RV branch; second length is probably 25 mm - 30 mm at most. There is a vein graft, which is a jump graft to the first obtuse marginal vessel and a second obtuse marginal vessel which is widely patent. The first obtuse marginal vessel is a small vessel, 1 mm reference vessel diameter. Retrograde filling to the point of occlusion in the proximal segment. It does fill up more medial branch, which is a 0.25 mm vessel, which has no significant obstructive disease. The vein graft then goes on to supply a distal obtuse marginal vessel/posterolateral artery, which reference vessel diameter approximately 2.5 mm. It then bifurcates with the more medial branch being about 2 mm - 5 mm, tortuous; approaching the apex with no significant disease angiographically. The more lateral branch is probably 2 mm reference vessel diameter, very tortuous in the ostial proximal segment. No significant obstructive disease. There is also grafting of the distal AV groove left circumflex vessel, which supplies a very small 0.5 mm - 1 mm distal posterolateral artery, which has no significant obstructive disease. There is retrograde filling of the AV groove left circumflex vessel to a point of occlusion just proximal to a small obtuse marginal vessel, which is approximately a 0.5 mm vessel. No significant obstructive disease. Vein graft to the right coronary artery is widely patent. The [place] right coronary artery has what appears to be severe diffuse disease up to 75% angiographically, extending into the ostial proximal segment of the right PDA, spanning a small right posterolateral artery; reference vessel diameter 2 mm with no significant obstructive disease. It appears the reference vessel diameter of the mid to distal right PDA is approximately 2 mm - 5 mm. The ISIDRO to LAD is atretic and occluded in the proximal segment. The left main coronary artery has no significant disease angiographically. Left circumflex also has a long 90% stenosis. There is competitive flow seen in a small mid marginal vessel. The LAD has a proximal 95%-99% stenosis. The LAD approaches the apex. The ramus intermedius vessel reference vessel diameter is 2.25 mm - 2.5 mm. He has a long ostial proximal 75% stenosis. It bifurcates to the LAD and circumflex with 45-degree angles in between both vessels. A 6-[place] sheath was exchanged for a 4-[place] sheath ____ was 295 3.5 guide 0.014 ____ Guidewire was placed into the distal LAD. I made an attempt to try to deliver a 2.5, 8 Integrity stent; however, due to severe vessel calcification, the proximal vessel was very difficult to get the stent to deliver to the lesion. I did get it to deliver to the lesion, but due to vessel stenosis severity, I could not cross the lesion. I then used a 2.5, 8 noncompliant Euphora balloon and with difficulty, was able to position the balloon across the lesion. The un-inflated balloon was completely occlusive of the vessel due to vessel stenosis severity. We did 3 inflations of up to 8 atmospheres up to 20 seconds. I then again, with difficulty was able to deliver a 2.5, 8 Integrity stent with one inflation, 11 atmospheres for 20 seconds. Stenosis went from 95% to 0% with MAYA-3 flow. CONCLUSIONS: 1. [id number]-[id number] myocardial infarction, nausea, vomiting, anginal equivalent; most likely culprit 95% proximal left anterior descending lesion with occluded left internal mammary artery to the left anterior descending as detailed above. 2. Normal left ventricular systolic function, ejection fraction 60%. 3. Successful percutaneous coronary intervention bare metal stent of the proximal left anterior descending for 95% to 0% with MAYA-3 flow. 4. Severe 3-vessel coronary artery disease. 5. Three of four grafts patent. 6. Recommend Effient 60 mg p.o. load, then 10 mg daily for a total of 3 months, aspirin 162 mg daily. Medical management of coronary artery disease with statin to NCEP guidelines, beta macho and VICTOR M inhibitors as clinically and hemodynamically tolerated. MD RUPERT Maldonado/marquez/guillermina , 12:57 PM , 01:10 PM
[2017-12-17] MEDS ORDERED: Lisinopril 5 MG Tablet PO SCH (09:00)
[2017-12-17] MEDS: Insulin NovoLOG Aspart Correctional Sugar Inj SQ SCH ×2 (09:43→12:41)
[2017-12-17] MEDS: Senna/Docusate Sodium 8.6/50 MG Tablet PO SCH (09:49)
--- NOTE | 2017-12-17 11:29 | P.PN ---
Subjective Interval history: patient is sinus rhythm no complains up and ambuating- no dizziness no chest pain Physical Exam Vital signs: Vital Signs 12/16/17 12:00 12/16/17 13:00 12/16/17 14:00 Temperature Pulse Rate 86 86 88 Respiratory Rate Blood Pressure Pulse Oximetry 12/16/17 15:00 12/16/17 16:00 12/16/17 17:00 Temperature 98.7 F Pulse Rate 86 88 84 Respiratory Rate Blood Pressure Pulse Oximetry 12/16/17 20:00 12/16/17 20:03 12/17/17 00:00 Temperature 98.7 F 98.7 F Pulse Rate 83 83 Respiratory Rate 16 12 16 Blood Pressure 129/56 L 129/56 L Pulse Oximetry 96 96 12/17/17 04:00 12/17/17 07:00 12/17/17 08:00 Temperature 98.7 F 98.1 F Pulse Rate 68 69 78 Respiratory Rate 18 18 Blood Pressure 139/60 119/51 L Pulse Oximetry 96 93 L Intake & Output 12/16/17 12/17/17 12/17/17 18:59 06:59 18:59 Intake Total 480 / 480 240 / 240 Output Total 1000 / 1000 1450 / 1450 Balance -520 / -520 -1210 / -1210 Weight 64.2 kg Intake: Oral 480 / 480 240 / 240 Output: Urine 1000 / 1000 1450 / 1450 Other: Date of Last Bowel Movement 12/15/17 12/15/17 12/15/17 # Bowel Movements 0 Narrative: No distress. SKIN: Focused skin assessment warm/dry. HEAD: Atraumatic. Normocephalic. EYES: Pupils equal and round. No scleral icterus. No injection or drainage. NECK: Trachea midline. CARDIOVASCULAR: Regular rate and rhythm. RESPIRATORY: No accessory muscle use. Clear to auscultation. Breath sounds equal bilaterally. GASTROINTESTINAL: Abdomen soft, nontender, nondistended. Hepatic and splenic margins not palpable. MUSCULOSKELETAL: No obvious deformities. No clubbing. No cyanosis. No significant edema. RIGHT GROIN -no hematoma, good peripheral pusles NEUROLOGICAL: Awake and alert. Motor grossly within normal limits. Normal speech. PSYCHIATRIC: Appropriate mood and affect; insight and judgment normal. Results - Labs CBC & Chem 7: 12/17/17 04:30 12/17/17 04:30 Laboratory Results - last 24 hr 12/16/17 12/16/17 12/16/17 14:37 17:00 18:59 WBC RBC Hgb Hct MCV MCH MCHC RDW Plt Count MPV Neut % (Auto) Lymph % (Auto) [place] % (Auto) Eos % (Auto) Baso % (Auto) Neut # (Auto) Lymph # (Auto) [place] # (Auto) Eos # (Auto) Baso # (Auto) WBC Differential Differential Comment Sodium Potassium Chloride Carbon Dioxide Anion Gap BUN Creatinine Estimated GFR POC Glucose 272 H 278 H 248 H Random Glucose Calcium Total Creatine Kinase Triglycerides Cholesterol LDL Cholesterol, Calc HDL Cholesterol Cholesterol/HDL Ratio 12/16/17 12/17/17 12/17/17 22:39 04:30 04:30 WBC 8.3 RBC 3.25 L Hgb 9.8 L Hct 30.1 L MCV 92.6 MCH 30.1 MCHC 32.5 RDW 13.2 Plt Count 197 MPV 9.0 Neut % (Auto) 73.2 H Lymph % (Auto) 11.7 [place] % (Auto) 11.4 H Eos % (Auto) 2.9 Baso % (Auto) 0.8 Neut # (Auto) 6.1 Lymph # (Auto) 1.0 [place] # (Auto) 1.0 H Eos # (Auto) 0.2 Baso # (Auto) 0.1 WBC Differential . Differential Comment Auto diff final Sodium 140 Potassium 4.4 Chloride 105 Carbon Dioxide 24.6 Anion Gap 10 BUN 22 H Creatinine 1.11 H Estimated GFR 48 L POC Glucose 92 Random Glucose 247 H Calcium 7.5 L Total Creatine Kinase 55 Triglycerides 113 Cholesterol 109 L LDL Cholesterol, Calc 50 HDL Cholesterol 36.1 L Cholesterol/HDL Ratio 3.01 12/17/17 08:10 WBC RBC Hgb Hct MCV MCH MCHC RDW Plt Count MPV Neut % (Auto) Lymph % (Auto) [place] % (Auto) Eos % (Auto) Baso % (Auto) Neut # (Auto) Lymph # (Auto) [place] # (Auto) Eos # (Auto) Baso # (Auto) WBC Differential Differential Comment Sodium Potassium Chloride Carbon Dioxide Anion Gap BUN Creatinine Estimated GFR POC Glucose 301 H Random Glucose Calcium Total Creatine Kinase Triglycerides Cholesterol LDL Cholesterol, Calc HDL Cholesterol Cholesterol/HDL Ratio Microbiology 12/14/17 16:05 Blood - Peripheral Aerobic Blood Culture - Preliminary No growth in 3 days 12/14/17 16:05 Blood - Peripheral Anaerobic Blood Culture - Preliminary No growth in 3 days 12/14/17 16:00 Blood - Peripheral Aerobic Blood Culture - Preliminary No growth in 3 days 12/14/17 16:00 Blood - Peripheral Anaerobic Blood Culture - Preliminary No growth in 3 days Assessment and Plan - Plan 77 years old female NSTEMI S/P cardiac cath 12/16 - stent LCx - cardiology ff - on Effiant -continue cardiac regimen. HYpertension N/V/D- IMPROVED - rsolved - CT abdomen without significant pathology. Symptoms currently resolved. -diabetic diet. DM The pt did not take insulin s/t GI distress and her glucose has been quite elevated. d/w him goals - needs OP ff up with [facility] c/o PCP - resume home meds on discharge CKD Stage 3. Creatinine not far from baseline. -IVFs. -follow BMP and avoid nephrotoxins. ff BMP post cath - currently on gentle hydration Leukocytosis= afebrile- WBC down Likely s/t gastroenteritis or reactive. UA not indicative of infection. CXR stable. -monitor as needed. PPx: Heparin gtt Discharge Planning: -
[2017-12-17 12:21] LABS: Calcium 7.9 mg/dL (8.5-10.1); Carbon Dioxide 22.5 meq/L (21.0-32.0); Potassium 4.3 meq/L (3.5-5.1)
--- NOTE | 2017-12-17 13:30 | P.PNCA ---
Subjective Interval history: assymptomatic, states she feels "much better" Physical Exam Vital signs: Vital Signs 12/16/17 14:00 12/16/17 15:00 12/16/17 16:00 Temperature 98.7 F Pulse Rate 88 86 88 Respiratory Rate Blood Pressure Pulse Oximetry 12/16/17 17:00 12/16/17 20:00 12/16/17 20:03 Temperature 98.7 F Pulse Rate 84 83 Respiratory Rate 16 12 Blood Pressure 129/56 L Pulse Oximetry 96 12/17/17 00:00 12/17/17 04:00 12/17/17 07:00 Temperature 98.7 F 98.7 F Pulse Rate 83 68 69 Respiratory Rate 16 18 Blood Pressure 129/56 L 139/60 Pulse Oximetry 96 96 12/17/17 08:00 12/17/17 12:00 Temperature 98.1 F 97.8 F Pulse Rate 78 73 Respiratory Rate 18 18 Blood Pressure 119/51 L 143/60 H Pulse Oximetry 93 L 98 Intake & Output 12/16/17 12/17/17 12/17/17 18:59 06:59 18:59 Intake Total 480 / 480 240 / 240 Output Total 1000 / 1000 1450 / 1450 Balance -520 / -520 -1210 / -1210 Weight 64.2 kg Intake: Oral 480 / 480 240 / 240 Output: Urine 1000 / 1000 1450 / 1450 Other: Date of Last Bowel Movement 12/15/17 12/15/17 12/15/17 # Bowel Movements 0 Assessment and Plan - Assessment (1) NSTEMI (non-ST elevated myocardial infarction) Code(s): I21.4 - Non-ST elevation (NSTEMI) myocardial infarction Status: Acute (2) CAD (coronary artery disease) Code(s): I25.10 - Atherosclerotic heart disease of elem coronary artery without angina pectoris Status: Acute (3) Diabetes Code(s): E11.9 - Type 2 diabetes mellitus without complications Status: Acute - Plan 1.) CAD - NSTEMI, assymptomatic pod # bms prox lad, ok to dc from [facility] on aspirin 162 mg qd, effient 10 mg qd, coreg, lipitor and lisinopril, i strongly advised patient to be compliant with aspirin and effient or risk life threatening stent thrombosis, she understands, i advised her to call my office mike to make vidal d/w Dr Huffman
--- NOTE | 2017-12-31 12:01 | P.DS ---
Date of admission: 12/14/17 16:32 Primary care physician: James Drew MD Brief History from admission: The patient is a 77-year-old female with a past medical history of CAD and diabetes who is presenting to the hospital with nausea, vomiting and diarrhea. The patient says she was feeling well until she woke up this morning at 6 AM. She went to go get a drink of water and immediately threw it up. Since that time she has been throwing up everything she tried to ingest. She also came down with diarrhea starting this morning as well. She said her blood sugar has been poorly controlled since this morning. She did not take any insulin because she has not been eating anything. She states that her blood pressure generally runs lower than it is right now. She says she generally does not have much of an appetite. She complains of chronic right knee swelling from a complication of right hip surgery she had. She denies any constipation or difficulty with urination. She denies any sick contacts, although she says that 1 of her neighbors is currently in the hospital. DS: Medications - Discharge Medications Prescriptions: aspirin 162 mg PO DAILY 30 Days #60 tab atorvastatin 40 mg PO DAILY 30 Days #30 tab carvedilol 3.125 mg PO BID 30 Days #60 tab lisinopril 2.5 mg PO DAILY 30 Days #15 tab prasugrel [Effient] 10 mg PO DAILY 30 Days #30 tab DS: Summary Hospital Course: 77 years old female NSTEMI S/P cardiac cath 12/16 - stent LCx - cardiology ff - on Effiant -continue cardiac regimen. HYpertension N/V/D- IMPROVED - rsolved - CT abdomen without significant pathology. Symptoms currently resolved. -diabetic diet. DM The pt did not take insulin s/t GI distress and her glucose has been quite elevated. d/w him goals - needs OP ff up with [facility] c/o PCP - resume home meds on discharge CKD Stage 3. Creatinine not far from baseline. -IVFs. -follow BMP and avoid nephrotoxins. ff BMP post cath - currently on gentle hydration Leukocytosis= afebrile- WBC down Likely s/t gastroenteritis or reactive. UA not indicative of infection. CXR stable. -monitor as needed. - Time Spent with Patient Total time spent providing and/or coordinating discharge services: Greater than 30 minutes - Quality: VTE Deep Vein Thrombosis/Pulmonary Embolism Present on Admission: No Results Procedures completed during hospitalization: cardiac cath, 12/16 - Impressions ITS Impressions Abdomen/Pelvis CT 12/14/17 15:01 CONCLUSION: 1. Large stool burden identified within the colon. No abnormal wall thickening and no evidence of bowel obstruction. 2. There is mild left perinephric fluid without visible obstructing lesion or other abnormality. Etiology of this is unknown. 3. Layering sludge identified within an otherwise unremarkable bladder. 4. Stable stone identified within the right renal pelvis. No evidence of hydronephrosis. Chest X-Ray 12/14/17 17:45 CONCLUSION: Stable lung appearance which may reflect chronic edema or fibrosis. No new lung abnormality seen to suggest pneumonia. Discharge Plan - Discharge Disposition Patient Disposition: /Home Health Service - Discharge Condition Condition: Stable - Discharge Order Discharge Orders: Discharge Order (Routine); Ordered 12/17/17 Ordered By: Sarbjit Huffman - Discharge Details Anticipated Discharge Date: 12/17/17 - Physicians Team Primary Care Provider: James Drew Attending Provider: Sarbjit Huffman Other Providers: John Mora MD ; [employer],Insurance
== END 2017-12-17 14:52 | disposition home health service (06) ==
LOC: PHED 13:19 → PHEDA 16:32 → PHICU 18:14 → HCIS 12-15 17:42
PROVIDERS: ADMIT Internal Medicine; ATTEND Internal Medicine